=== PATIENT | female | born 1975 | race Caucasian/White ===

== ENCOUNTER 2023-01-09 12:08 | Outpatient (REF) | payer BC, SELFPAY ==
[2023-01-09 15:01] LABS: Influenza A PCR NEGATIVE (Negative); Influenza B PCR NEGATIVE (Negative); Resp Syncy Virus RNA Qual PCR NEGATIVE (Negative); SARS COV2 PCR INHOUSE NEGATIVE (Negative)
== END 2023-01-09 12:09 | disposition home or self-care (01) ==
LOC: HO.LAB 12:08
PROVIDERS: Visit Provider Physician Assistant
DX: Z20.822 Contact with and (suspected) exposure to COVID-19 (principal); R09.89 Other specified symptoms and signs involving the circulatory and respiratory systems
CPT/HCPCS: 0241U

== ENCOUNTER 2023-09-27 15:25 | Outpatient (AMB) | payer BC, SELFPAY ==
[2023-09-27 15:27] VITALS: BP 120/86; PULSE 78; O2SAT 97; BMI 25.1
--- NOTE | 2023-09-27 15:27 | MHC.PC.OV ---
Vital Signs 09/27/23 15:27 Height 5 ft 4 in Weight 146 lb BMI 25.1 BP 120/86 Blood Pressure Location Rt brachial Position Sitting Pulse 78 Pulse Source Pulse Oximeter Pulse Oximetry (%) 97 Oxygen Delivery Method Room Air Intake Visit Reasons: Annual Physical Allergies No Known Allergies Allergy (Verified 09/27/23 15:27) Medication List - Last Reconciled 09/27/23 by Robert Barajas MD propranolol 20 mg PO DAILY 90 days Tobacco use date assessed: 09/27/23 Dental Screening Dental Screen Date: 09/27/23 Did you have a dental visit in the last 12 months?: Yes Did you have a dental problem in the last 6 months where you did not have access to dental care?: No Was dental information given to patient?: Patient has dentist HPI Annual Physical HPI Details Patient is a 48-year-old female came in today for her physical exam Her migraine headaches are worse these days patient feels that she is going through menopause She is asking me if I can check her menopausal hormones which I have added to her labs Patient is seeing OBGYN at [facility], mammograms and breast exams are through them She is off control since last October We will set up a telemedicine visit in 2 weeks to go over the labs and then see if we can change propranolol to amitriptyline He is complaining of severe tiredness and fatigue, her tested positive for Lyme patient is requesting if she can be checked as well [facility] Social History Housing: House Alcohol intake: current Alcohol intake frequency: a few times a month Patient Tobacco Use Status: Never used Tobacco e-Cigarette/Vaping Use: Never Used service: No Current occupational status: employed Cognitive needs: No Hearing needs: No Vision needs: No Questionnaire PHQ-9 Over the last 2 weeks, how often have you been bothered by any of the following problems? 1. Little interest or pleasure in doing things: several days 2. Feeling down, depressed, or hopeless: not at all 3. Trouble falling or staying asleep, or sleeping too much: not at all 4. Feeling tired or having little energy: more than half the days 5. Poor appetite or overeating: more than half the days 6. Feeling bad about yourself - or that you are a failure or have let yourself or your family down: not at all 7. Trouble concentrating on things, such as reading the newspaper or watching television: not at all 8. Moving or speaking so slowly that other people could have noticed. Or the opposite - being so fidgety or restless that you have been moving around a lot more than usual: not at all 9. Thoughts that you would be better off or of hurting yourself in some way: not at all Total score: 5 Depression Screening Interpretation: Negative Depression Screening Done: Yes 35734 - PHQ-9 Billing: Yes Source: Developed by Drs. Daljit Ahuja, Jose Moreno and colleagues, with an educational sunny from [employer]. Thrive Questionnaire Date Thrive assessed: 09/20/22 AUDIT C Alcohol Use Questionnaire (AUDIT-C) 1. How often do you have a drink containing alcohol?: Monthly or less 2. How many drinks containing alcohol do you have on a typical day when you are drinking?: 1 or 2 3. How often do you have six or more drinks on one occasion?: Never Total Score: 1 Score Reviewed/Action Taken: Yes PATRICIA-7 AMB Questionnaire PATRICIA-7 Date PATRICIA - 7 assessed: 09/20/22 Source: Developed by Drs. Daljit Ahuja, Angelina Ybarra, Jose Man and colleagues, with an educational sunny from [employer]. Review of Systems Const Denies chills, Denies fever(s) and Denies headache(s) Eyes Denies blurry vision ENT Denies headache(s), Denies nasal discharge, Denies nasal obstruction, Denies odynophagia and Denies sinus pain Card Denies chest pain at rest and Denies chest pain with activity Resp Denies cough and Denies hemoptysis GI Denies diarrhea, Denies odynophagia, Denies vomiting and Denies hematemesis Reports as per HPI Musc Denies abnormal gait Skin/Breast Reports as per HPI Neuro Denies Neuro-related abnormal movements, Denies Abnormal speech present, Denies abnormal gait, Denies headache(s) and Denies Sensory deficit (Neuro) Psych Denies paranoia Endo Reports as per HPI Kelvin/Lymph Reports as per HPI Aller/Immun Reports as per HPI Physical exam (Primary Care) Vital Signs: Last Vital Signs Pulse 78 09/27/23 15:27 BP 120/86 09/27/23 15:27 Pulse Ox 97 09/27/23 15:27 Oxygen Delivery Method Room Air 09/27/23 15:27 BMI result Body Mass Index 25.1 Tobacco/Smoking Status: Tobacco use Status Tobacco use date assessed 09/27/23 09/27/23 15:29 Patient Tobacco Use Status Never used Tobacco 09/27/23 15:29 e-Cigarette/Vaping Use Never Used 09/27/23 15:29 Depression Screening Interpretation: Negative Thrive Assessment: Date of Thrive Assessment Date Thrive assessed 09/20/22 09/27/23 15:29 Const General: cooperative, comfortable and no acute distress Orientation/consciousness: patient oriented x3 HENMT Head: Yes normocephalic and Yes atraumatic Eyes General: appearance normal, both eyes and all related structures Pupils: Equal, round and reactive pupils present EOM: EOMs intact bilaterally Neck Neck: Yes supple and No lymphadenopathy Thyroid: Thyroid normal Lymphatic: no lymphadenopathy noted Resp Effort & Inspection: normal respiratory effort and able to speak in complete sentences Auscultation: clear to auscultation bilaterally Cardio Heart sounds: S1 normal heart sound present and S2 normal heart sound present GI Palpation (GI): Soft to palpation and nontender Auscultation: normal bowel sounds General: Yes no CVA tenderness Back/Spine/Pelvis Back: no CVA tenderness Skin General skin exam: elasticity normal and turgor normal Neuro General: patient oriented x3 and gait normal Cranial nerves: Yes Equal, round and reactive pupils present Speech: No Abnormal speech present Sensory Exam: No Sensory deficit (Neuro) Coordination: tandem gait normal and Romberg test negative Extrem General: Yes normal exam except as noted and No edema Assessment and Plan Assessment & Plan (1) Encounter for general adult medical examination with abnormal findings: Code(s): Z00.01 - Encounter for general adult medical examination with abnormal findings (2) Migraine headache: Code(s): G43.909 - Migraine, unspecified, not intractable, without status migrainosus Qualifiers: Migraine type: other Status migrainosus presence: without status migrainosus Intractability: intractable Qualified Code(s): G43.819 - Other migraine, intractable, without status migrainosus (3) Fatigue: Code(s): R53.83 - Other fatigue Qualifiers: Fatigue type: other Qualified Code(s): R53.83 - Other fatigue (4) Hot flashes: Code(s): R23.2 - [place] Plan Patient is a 48-year-old female came in today for her physical exam Her migraine headaches are worse these days patient feels that she is going through menopause She is asking me if I can check her menopausal hormones which I have added to her labs Patient is seeing OBGYN at [facility], mammograms and breast exams are through them She is off control since last October We will set up a telemedicine visit in 2 weeks to go over the labs and then see if we can change propranolol to amitriptyline He is complaining of severe tiredness and fatigue, her tested positive for Lyme patient is requesting if she can be checked as well Orders: Orders Complete Blood Count Auto Diff Today G43.909 - Migraine, unspecified, not intractable, without status migrainosus, Z00.01 - Encounter for general adult medical examination with abnormal findings Comprehensive [place]. Panel Fast Today G43.909 - Migraine, unspecified, not intractable, without status migrainosus, Z00.01 - Encounter for general adult medical examination with abnormal findings TSH reflex Free T4 Today G43.909 - Migraine, unspecified, not intractable, without status migrainosus, Z00.01 - Encounter for general adult medical examination with abnormal findings Lutenizing Hormone Today R23.2 - [place], R53.83 - Other fatigue Lyme IgG/IgM w/reflex to WB Today R23.2 - [place], R53.83 - Other fatigue Lipid Panel Today G43.909 - Migraine, unspecified, not intractable, without status migrainosus, Z00.01 - Encounter for general adult medical examination with abnormal findings Follicle Stimulating Hormone Today R23.2 - [place], R53.83 - Other fatigue Coding Level of Care Code Est Pt Prev Care 40-64y(33103) Diagnoses Encounter for general adult medical examination with abnormal findings Z00.01 Other migraine without status migrainosus, intractable G43.819 Migraine type: other Status migrainosus presence: without status migrainosus Intractability: intractable Other fatigue R53.83 Fatigue type: other Hot flashes R23.2
== END 2023-09-27 15:44 | disposition home or self-care (01) ==
PROVIDERS: Visit Provider Internal Medicine
DX: Z00.01 Encounter for general adult medical examination with abnormal findings (principal); G43.819 Other migraine, intractable, without status migrainosus; R53.83 Other fatigue; R23.2 Flushing
CPT/HCPCS: 99396

== ENCOUNTER 2023-09-30 08:49 | Outpatient (REF) | payer BC, SELFPAY ==
[2023-09-30 11:06] LABS: MANUAL DIFF FLAG NO
[2023-09-30 11:12] LABS: Basophils Absolute Auto 0.1 X10*3/uL (0.0-0.2); Basophils Percent Auto 0.7 % (0-2); Eosinophils Absolute Auto 0.3 X10*3/uL (0.0-0.4); Eosinophils Percent Auto 3.1 % (0-4); Hematocrit 37.4 % (37.0-47.0); Hemoglobin 12.5 g/dl (12.0-16.0); Imm Gran Abs Auto 0.02 X10*3/uL (0.00-0.03); Imm Gran Pct Auto 0.2 % (0.0-0.4); Lymphocytes Absolute Auto 1.8 X10*3/uL (1.2-4.9); Lymphocytes Percent Auto 21.5 % (20-40); Mean Corpuscular HGB Conc 33.4 g/dl (31.0-35.0); Mean Corpuscular Hemoglobin 30.8 pg (27.0-33.0); Mean Corpuscular Volume 92.1 fL (80.0-98.0); Mean Platelet Volume 8.6 fL (9.4-12.3); Monocytes Absolute Auto 0.5 X10*3/uL (0.1-1.2); Monocytes Percent Auto 6.6 % (2-11); Neutrophils Absolute Auto 5.5 x10*3/uL (2.0-8.3); Neutrophils Percent Auto 67.9 % (45-73); Platelet Count 260 X10*3/uL (160-400); Red Blood Count 4.06 X10*6/uL (4.20-5.50); Red Cell Distribution Width 12.7 % (11.0-16.0); White Blood Count 8.2 X10*3/uL (4.8-10.8)
[2023-09-30 11:43] LABS: Alanine Aminotransferase 13 U/L (0-31); Albumin Level 4.1 g/dL (3.5-5.0); Alkaline Phosphatase 49 U/L (39-117); Anion Gap 12 (12-20); Aspartate Amino Transferase 15 U/L (5-31); Bilirubin Total 0.5 mg/dL (0.0-1.0); Blood Urea Nitrogen 15 mg/dL (9-16); Calcium 9.4 mg/dL (8.4-10.2); Carbon Dioxide 27 mmol/L (22-29); Chloride 106 mmol/L (96-108); Cholesterol 191 mg/dL (<200); Estimated Glomerular Filt Rate > 60; Glucose Fasting 91 mg/dL (60-99); HDL Cholesterol 68 mg/dL (>40); LDL Cholesterol Calculated 107 mg/dL (<100); Potassium 3.7 mmol/L (3.3-5.1); Sodium 141 mmol/L (135-145); Triglycerides 80 mg/dL (<150)
[2023-09-30 11:44] LABS: TSH reflex Free T4 1.17 uIU/mL (0.32-4.0)
[2023-10-01 16:03] LABS: Follicle Stimulating Hormone 6.3 mIU/mL; Lutenizing Hormone 8.9 mIU/mL
[2023-10-02 19:08] LABS: Lyme Abs Screen <0.90 index
== END 2023-09-30 08:50 | disposition home or self-care (01) ==
LOC: HO.HMGCLDS 08:49
PROVIDERS: PCP Internal Medicine; Visit Provider Internal Medicine
DX: Z00.01 Encounter for general adult medical examination with abnormal findings (principal); G43.909 Migraine, unspecified, not intractable, without status migrainosus; R53.83 Other fatigue; R23.2 Flushing
CPT/HCPCS: 36415; 80053; 80061; 83001; 83002; 84443; 85025; 86617; 86618

== ENCOUNTER 2023-10-19 08:39 | Outpatient (AMB) | payer BC, SELFPAY ==
--- NOTE | 2023-10-19 08:39 | A.OFFPC_ITS ---
Intake Visit Reasons: 2 week follow up Allergies No Known Allergies Allergy (Verified 10/19/23 08:39) Medication List - Last Reconciled 10/19/23 by Robert Barajas MD propranolol 20 mg PO DAILY 90 days Tobacco use date assessed: 09/27/23 HPI 2 week follow up HPI Details Patient is 48-year-old female who suffers from migraine headache She was seen few days ago when she verbalized that her headaches are getting worse And she is feeling tired I wanted to check for Lyme as her came back positive, her test is negative Her menopausal hormones are also within normal limit Thyroid test came back normal Kidney function liver functions are intact lipids are reasonably controlled. Patient tells me that her migraines are stable now and she would like to continue with propranolol. [facility] Social History Housing: House Alcohol intake: current Alcohol intake frequency: a few times a month Patient Tobacco Use Status: Never used Tobacco e-Cigarette/Vaping Use: Never Used service: No Current occupational status: employed Cognitive needs: No Hearing needs: No Vision needs: No Questionnaire Thrive Questionnaire Date Thrive assessed: 09/20/22 PATRICIA-7 AMB Questionnaire PATRICIA-7 Date PATRICIA - 7 assessed: 09/20/22 Source: Developed by Drs. Daljit Ahuja, Angelina Ybarra, Jose Man and colleagues, with an educational sunny from [employer]. Review of Systems Const Denies chills and Denies fever(s) ENT Denies epistaxis and Denies nasal discharge Card Denies chest pain Resp Denies chest congestion, Denies cough and Denies hemoptysis GI Denies diarrhea and Denies nausea Skin/Breast Denies rash Neuro Reports no additional complaints Psych Reports no additional complaints Endo Reports no additional complaints Physical exam (Primary Care) Tobacco/Smoking Status: Tobacco use Status Tobacco use date assessed 09/27/23 10/19/23 08:41 Patient Tobacco Use Status Never used Tobacco 10/19/23 08:41 e-Cigarette/Vaping Use Never Used 10/19/23 08:41 Thrive Assessment: Date of Thrive Assessment Date Thrive assessed 09/20/22 10/19/23 08:41 Telehealth Telehealth Location of provider rendering services: practice address Location of patient: address on file Patient Identification confirmed using: Name, : Yes Telehealth method: video Patient verbally consented to treatment: Yes Patient verbally consented to billing insurance company: Yes Patient informed of any privacy concerns related to visit: Yes Minutes spent on Phone/Video with Pt.: 13 Assessment and Plan Assessment & Plan (1) Migraine headache: Code(s): G43.909 - Migraine, unspecified, not intractable, without status migrainosus Qualifiers: Intractability: intractable Migraine type: other Status migrainosus presence: without status migrainosus Qualified Code(s): G43.819 - Other migraine, intractable, without status migrainosus Plan Patient is 48-year-old female who suffers from migraine headache She was seen few days ago when she verbalized that her headaches are getting worse And she is feeling tired I wanted to check for Lyme as her came back positive, her test is negative Her menopausal hormones are also within normal limit Thyroid test came back normal Kidney function liver functions are intact lipids are reasonably controlled. Patient tells me that her migraines are stable now and she would like to continue with propranolol. Coding Level of Care Code Tele Est Pt Level 3 (98963) Diagnoses Other migraine without status migrainosus, intractable G43.819 Intractability: intractable Migraine type: other Status migrainosus presence: without status migrainosus
--- NOTE | 2023-10-19 08:39 | A.OFFPC_ITS ---
Intake Visit Reasons: 2 week follow up Allergies No Known Allergies Allergy (Verified 10/19/23 08:39) Tobacco use date assessed: 10/19/23 [facility] Social History Housing: House Alcohol intake: current Alcohol intake frequency: a few times a month Patient Tobacco Use Status: Never used Tobacco e-Cigarette/Vaping Use: Never Used service: No Current occupational status: employed Cognitive needs: No Hearing needs: No Vision needs: No Questionnaire Thrive Questionnaire Date Thrive assessed: 09/20/22 PATRICIA-7 AMB Questionnaire PATRICIA-7 Date PATRICIA - 7 assessed: 09/20/22 Source: Developed by Drs. Daljit Ahuja, Angelina Ybarra, Jose Man and colleagues, with an educational sunny from [employer]. Physical exam (Primary Care) Tobacco/Smoking Status: Tobacco use Status Tobacco use date assessed 09/27/23 09/27/23 15:29 Patient Tobacco Use Status Never used Tobacco 09/27/23 15:29 e-Cigarette/Vaping Use Never Used 09/27/23 15:29 Thrive Assessment: Date of Thrive Assessment Date Thrive assessed 09/20/22 09/27/23 15:29 Coding
== END 2023-10-19 15:13 | disposition home or self-care (01) ==
LOC: HO.HMGC 08:39
PROVIDERS: PCP Internal Medicine; Visit Provider Internal Medicine
DX: G43.819 Other migraine, intractable, without status migrainosus (principal)
CPT/HCPCS: 99213

== ENCOUNTER 2024-11-05 12:22 | Outpatient (REF) | payer BC, SELFPAY ==
--- OUTSIDE RECORDS SUMMARY | 2024-11-05 15:19 | XMS_ITS | Clinical Summary ---
Author Organization [facility] ity Address [address] [place] [phone] Care Team Providers Care Visiting Housekeeper Name Role Phone Robert Barajas MD Primary Care Provider [phone] Surgical History Surgery Date Site/Laterality Comments OTHER [...] RESULTING AGENCY - 09/02/2022 2:50 PM EST [id number] THINPREP PAP, IMAGED: NEGATIVE FOR SQUAMOUS INTRAEPITHELIAL [...] AM EDT Narrative 04/03/2022 1:31 PM EDT [facility] Diagnostic Imaging Department [address] [place] [address] Patient: ??DORITA INGRAM ?/Age/Sex: 1975 - 46 - F Unit#: ??[id number] ? Location/Status: ??SPDIMAM/REG CLI ? Mnemonic/Ordering Site: ??DIGSC/SPMAM Ordering Physician: ??REMIGIO MAHER MD [facility] Screening Digital - 04/02/22 - 820 EXAM: [facility] Screening Digital EXAM DATE AND TIME: 04/02/2022 8:22 AM HISTORY: ??Annual screening mammography. COMPARISON: ??06/25/2020 through 03/20/2017 TECHNIQUE: CC and MLO views of both breasts were obtained using full field digital mammography. Bilateral digital breast tomosynthesis was performed in the MLO projection. 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 TISSUE DENSITY: d. The breasts [...] Routine screening mammogram BILATERAL in 1 year. 13691, 12078 3341F, 7025F Dictating Physician: ??ALEJANDRA SOLORZANO MD Electronically Signed by: ??ALEJANDRA SOLORZANO MD Dic Date/Time: ??04/03/22 1326 Sign date/Time: ??04/03/22 1331 Procedure Note Eliza Solorzano MD - 07/27/2022 [facility] Diagnostic Imaging Department [address] [place] [address] Patient: DORITA INGRAM D.O.B./Age/Sex: 1975 - 46 - F Unit#: [id number] Location/Status: SPDIMAM/REG CLI Mnemonic/Ordering Site: [facility] Ordering Physician: REMIGIO MAHER MD [facility] Screening Digital - 04/02/22 - 820 EXAM: [facility] Screening Digital EXAM DATE AND TIME: 04/02/2022 8:22 AM HISTORY: Annual screening mammography. COMPARISON: 06/25/2020 through 03/20/2017 TECHNIQUE: CC and MLO views of both breasts were obtained using fullfield digital mammography. Bilateral digital breast tomosynthesis was performedin the MLO projection. Computer aided detection with the app[employer] employed. TISSUE DENSITY: d. The breasts are [...] Routine screening mammogram BILATERAL in 1 year. 88086, 56038 3341F, 7025F Dictating Physician: ALEJANDRA SOLORZANO MD Electronically Signed by: ALEJANDRA SOLORZANO MD Dic Date/Time: 04/03/22 1326 Sign date/Time: 04/03/22 1331 Remigio Maher MD IMG BI PROCEDURES Final Result from Last 3 Months or Most Recently Relevant to Health Maintenance Advance Directives Documents on File Type Date Recorded Patient Loan Service Officer Expl anation Health Care Decision (hx) 01/07/2022 AD HIGUERA DIRECTIVE Health Care Decision (hx) 01/07/2022 AD HIGUERA DIRECTIVE Health Care Decision (hx) 01/07/2022 AD HIGUERA DIRECTIVE Care Teams Visiting Housekeeper Relationship Specialty Start Date End Date Robert Barajas MD [address] [place] [address] PCP - General Internal Medicine 12/23/21
[2024-11-05 16:13] LABS: MANUAL DIFF FLAG NO
[2024-11-05 16:37] LABS: Basophils Absolute Auto 0.1 X10*3/uL (0.0-0.2); Basophils Percent Auto 0.6 % (0-2); Eosinophils Absolute Auto 0.3 X10*3/uL (0.0-0.4); Eosinophils Percent Auto 3.6 % (0-4); Hemoglobin 12.1 g/dl (12.0-16.0); Imm Gran Abs Auto 0.02 X10*3/uL (0.00-0.03); Imm Gran Pct Auto 0.2 % (0.0-0.4); Lymphocytes Absolute Auto 1.7 X10*3/uL (1.2-4.9); Lymphocytes Percent Auto 19.5 % (20-40); Mean Corpuscular HGB Conc 33.6 g/dl (31.0-35.0); Mean Corpuscular Hemoglobin 30.9 pg (27.0-33.0); Mean Corpuscular Volume 92.1 fL (80.0-98.0); Mean Platelet Volume 8.7 fL (9.4-12.3); Monocytes Absolute Auto 0.7 X10*3/uL (0.1-1.2); Monocytes Percent Auto 7.9 % (2-11); Neutrophils Absolute Auto 5.9 x10*3/uL (2.0-8.3); Neutrophils Percent Auto 68.2 % (45-73); Platelet Count 241 X10*3/uL (160-400); Red Blood Count 3.91 X10*6/uL (4.20-5.50); Red Cell Distribution Width 12.4 % (11.0-16.0); White Blood Count 8.6 X10*3/uL (4.8-10.8)
[2024-11-05 18:09] LABS: Alanine Aminotransferase 22 U/L (0-31); Albumin Level 4.3 g/dL (3.5-5.0); Alkaline Phosphatase 53 U/L (39-117); Anion Gap 8 (12-20); Aspartate Amino Transferase 21 U/L (5-31); Bilirubin Total 0.5 mg/dL (0.0-1.0); Blood Urea Nitrogen 15 mg/dL (9-16); Calcium 9.5 mg/dL (8.4-10.2); Carbon Dioxide 27 mmol/L (22-29); Chloride 107 mmol/L (96-108); Estimated Glomerular Filt Rate > 60; Glucose Random 81 mg/dL (60-115); Potassium 4.4 mmol/L (3.3-5.1); Sodium 138 mmol/L (135-145); TSH reflex Free T4 0.98 uIU/mL (0.32-4.0)
[2024-11-06 16:05] LABS: LDL Cholesterol Direct 106 mg/dL (<100)
== END 2024-11-05 12:23 | disposition home or self-care (01) ==
LOC: HO.HMGCLDS 12:22
PROVIDERS: PCP Internal Medicine; Visit Provider Internal Medicine
DX: Z00.01 Encounter for general adult medical examination with abnormal findings (principal); R00.2 Palpitations; G43.819 Other migraine, intractable, without status migrainosus; E66.3 Overweight; Z68.26 Body mass index [BMI] 26.0-26.9, adult; Z82.49 Family history of ischemic heart disease and other diseases of the circulatory system; Z82.3 Family history of stroke; Z71.3 Dietary counseling and surveillance
CPT/HCPCS: 36415; 80053; 83721; 84443; 85025; 96127

== ENCOUNTER 2024-11-05 12:22 | Outpatient (AMB) | payer BC, SELFPAY ==
[2024-11-05 12:29] VITALS: BP 128/76; PULSE 66; O2SAT 98; BMI 26.0
--- NOTE | 2024-11-05 12:29 | A.OFFPC_ITS ---
Vital Signs 11/05/24 12:29 Height 5 ft 4 in Weight 151 lb 4 oz BMI 26.0 BP 128/76 Blood Pressure Location Rt brachial Position Sitting Pulse 66 Pulse Source Pulse Oximeter Pulse Oximetry (%) 98 Oxygen Delivery Method Room Air Intake Visit Reasons: Annual Pe Allergies No Known Allergies Allergy (Verified 11/05/24 12:34) Medication List - Last Reconciled 11/05/24 by Robert Barajas MD propranolol 20 mg PO DAILY 90 days Tobacco use date assessed: 11/05/24 Dental Screening Dental Screen Date: 11/05/24 Did you have a dental visit in the last 12 months?: Yes Did you have a dental problem in the last 6 months where you did not have access to dental care?: No Was dental information given to patient?: Patient has dentist HPI Annual Pe HPI Details Patient is a 49-year-old female came in for physical examination Migraine headaches are no longer responding to propranolol 20 mg alone Also having difficulty sleeping at night due to stress at work 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 Rollins Follow-up in 3 weeks for medication follow-up and Holter and echocardiogram/labs follow-up [facility] Social History Housing: House Alcohol intake: current Alcohol intake frequency: a few times a month Patient Tobacco Use Status: Never used Tobacco e-Cigarette/Vaping Use: Never Used service: No Current occupational status: employed Cognitive needs: No Hearing needs: No Vision needs: No Questionnaire PHQ-9 Over the last 2 weeks, how often have you been bothered by any of the following problems? 1. Little interest or pleasure in doing things: not at all 2. Feeling down, depressed, or hopeless: not at all 3. Trouble falling or staying asleep, or sleeping too much: several days 4. Feeling tired or having little energy: several days 5. Poor appetite or overeating: several days 6. Feeling bad about yourself - or that you are a failure or have let yourself or your family down: not at all 7. Trouble concentrating on things, such as reading the newspaper or watching television: not at all 8. Moving or speaking so slowly that other people could have noticed. Or the opposite - being so fidgety or restless that you have been moving around a lot more than usual: not at all 9. Thoughts that you would be better off or of hurting yourself in some way: not at all Total score: 3 Depression Screening Interpretation: Negative Depression Screening Done: Yes 26077 - PHQ-9 Billing: Yes Source: Developed by Drs. Daljit Ahuja, Angelina Ybarra, Jose Man and colleagues, with an educational sunny from [employer]. Thrive Questionnaire Date Thrive assessed: 11/05/24 I am a: Patient What is your living situation today?: I have a steady place to live Within the past 12 months, did the food you bought not last and you didn't have the money to get more?: I choose not to answer this question Within the past 12 months, did you worry whether your food would run out before you got money to buy more?: I choose not to answer this question Do you have trouble paying for medicines?: I choose not to answer this question Do you have trouble getting transportation to medical appointments?: I choose not to answer this question Do you have trouble paying your heating and electricity bill?: I choose not to answer this question Do you have trouble taking care of your child, family member or friend?: I choose not to answer this question Do you have trouble with day-to-day activities such as bathing, preparing meals, shopping, managing finances, etc.?: I choose not to answer this question Are you currently unemployed and looking for a job?: I choose not to answer this question Are you interested in more education?: I choose not to answer this question Please select the resources that you would like help with: None Currently or been in a relationship where the following occur: No concerns reported and I choose not to answer THRIVE Score: 0 AUDIT C Alcohol Use Questionnaire (AUDIT-C) 1. How often do you have a drink containing alcohol?: 2-3 times a week 2. How many drinks containing alcohol do you have on a typical day when you are drinking?: 1 or 2 3. How often do you have six or more drinks on one occasion?: Never Total Score: 3 Score Reviewed/Action Taken: Yes PATRICIA-7 AMB Questionnaire PATRICIA-7 Date PATRICIA - 7 assessed: 11/05/24 Feeling nervous, anxious, or on edge: 1 = Several days Not being able to stop or control worryin = Several days Worrying too much about different things: 1 = Several days Trouble relaxin = Several days Being so restless that it is hard to sit still: 0 = Not at all Becoming easily annoyed or irritable: 1 = Several days Feeling afraid as if something awful might happen: 0 = Not at all Total PATRICIA-7 score (0-4 normal; 5-9 mild; 10-14 moderate; 15-21 severe): 5 Source: Developed by Drs. Daljit Ahuja, Angelina Ybarra, Jose Man and colleagues, with an educational sunny from [employer]. PATRICIA-7 Assessment Billing PATRICIA-7 Assessment Tool: PATRICIA-7 Assessment 40858 Review of Systems Const Denies chills and Denies fever(s) Eyes Denies blurry vision ENT Denies nasal discharge, Denies nasal obstruction, Denies odynophagia and Denies sinus pain Card Denies chest pain at rest and Denies chest pain with activity Resp Denies cough and Denies hemoptysis GI Denies diarrhea, Denies odynophagia, Denies vomiting and Denies hematemesis Reports as per HPI Musc Denies abnormal gait Skin/Breast Reports as per HPI Neuro Denies Neuro-related abnormal movements, Denies Abnormal speech present, Denies abnormal gait and Denies Sensory deficit (Neuro) Psych Denies mood swings and Denies paranoia Endo Reports as per HPI Kelvin/Lymph Reports as per HPI Aller/Immun Reports as per HPI Physical exam (Primary Care) Vital Signs: Last Vital Signs Pulse 66 11/05/24 12:29 BP 128/76 11/05/24 12:29 Pulse Ox 98 11/05/24 12:29 Oxygen Delivery Method Room Air 11/05/24 12:29 BMI result Body Mass Index 26.0 Tobacco/Smoking Status: Tobacco use Status Tobacco use date assessed 11/05/24 11/05/24 12:34 Patient Tobacco Use Status Never used Tobacco 11/05/24 12:29 e-Cigarette/Vaping Use Never Used 11/05/24 12:29 PHQ-9: PHQ-9 Score PHQ-9: Total score 3 11/05/24 12:59 Depression Screening Interpretation: Negative Thrive Assessment: Date of Thrive Assessment Date Thrive assessed 11/05/24 11/05/24 12:34 Currently or been in a relationship where the following occur: No concerns reported and I choose not to answer Const General: cooperative, comfortable and no acute distress Orientation/consciousness: patient oriented x3 HENMT Head: Yes normocephalic and Yes atraumatic Eyes General: appearance normal, both eyes and all related structures Pupils: Equal, round and reactive pupils present EOM: EOMs intact bilaterally Neck Neck: Yes supple and No lymphadenopathy Thyroid: Thyroid normal Lymphatic: no lymphadenopathy noted Resp Effort & Inspection: normal respiratory effort and able to speak in complete sentences Auscultation: clear to auscultation bilaterally Cardio Heart sounds: S1 normal heart sound present and S2 normal heart sound present GI Palpation (GI): Soft to palpation and nontender Auscultation: normal bowel sounds General: Yes no CVA tenderness Back/Spine/Pelvis Back: no CVA tenderness Skin General skin exam: elasticity normal and turgor normal Neuro General: patient oriented x3 and gait normal Cranial nerves: Yes Equal, round and reactive pupils present Speech: No Abnormal speech present Sensory Exam: No Sensory deficit (Neuro) Coordination: tandem gait normal and Romberg test negative Extrem General: Yes normal exam except as noted and No edema Coding Level of Care Code Est Pt Level 4 (12545) Est Pt Prev Care 40-64y(69554) Diagnoses Encounter for general adult medical examination with abnormal findings Z00.01 Colon cancer screening Z12.11 Palpitation R00.2 Other migraine without status migrainosus, intractable G43.819 Intractability: intractable Migraine type: other Status migrainosus presence: without status migrainosus Family history of atrial fibrillation Z82.49 Over weight E66.3 Family history of stroke Z82.3 Family history of early CAD Z82.49 Additional Codes PATRICIA-7 Assessment Billing - PATRICIA-7 Assessment Tool: PATRICIA-7 Assessment 65235 ([id number]) PHQ-9 - 62574 - PHQ-9 Billing: Yes ([id number]) Assessment & Plan Assessment & Plan (1) Encounter for general adult medical examination with abnormal findings: Code(s): Z00.01 - Encounter for general adult medical examination with abnormal findings Category: Medical (2) Colon cancer screening: Code(s): Z12.11 - Encounter for screening for malignant neoplasm of colon Category: Medical (3) Palpitation: Code(s): R00.2 - Palpitations Category: Medical (4) Migraine headache: Code(s): G43.909 - Migraine, unspecified, not intractable, without status migrainosus Category: Medical Qualifiers: Intractability: intractable Migraine type: other Status migrainosus presence: without status migrainosus Qualified Code(s): G43.819 - Other migraine, intractable, without status migrainosus (5) Family history of atrial fibrillation: Code(s): Z82.49 - Family history of ischemic heart disease and other diseases of the ci rculatory system Category: Medical (6) Over weight: Code(s): E66.3 - Overweight Category: Medical (7) Family history of stroke: Code(s): Z82.3 - Family history of stroke Category: Medical (8) Family history of early CAD: Code(s): Z82.49 - Family history of ischemic heart disease and other diseases of the circulatory system Category: Medical Plan Patient is a 49-year-old female came in for physical examination Migraine headaches are no longer responding to propranolol 20 mg alone Also having difficulty sleeping at night due to stress at work 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 Rollins Follow-up in 3 weeks for medication follow-up and Holter and echocardiogram/labs follow-up Orders: Orders ECG 3 day holter monitor Today R00.2 - Palpitations Comprehensive Met. Panel Today E66.3 - Overweight, G43.819 - Other migraine, intractable, without status migrainosus, R00.2 - Palpitations, Z00.01 - Encounter for general adult medical examination with abnormal findings, Z82.49 - Family history of ischemic heart disease and other diseases of the circulatory system TSH reflex Free T4 Today E66.3 - Overweight, G43.819 - Other migraine, intractable, without status migrainosus, R00.2 - Palpitations, Z00.01 - Encounter for general adult medical examination with abnormal findings, Z82.49 - Family history of ischemic heart disease and other diseases of the circulatory system CA echo transthoracic complete Today R00.2 - Palpitations, Z82.3 - Family history of stroke, Z82.49 - Family history of ischemic heart disease and other diseases of the circulatory system Complete Blood Count Auto Diff Today E66.3 - Overweight, G43.819 - Other migraine, intractable, without status migrainosus, R00.2 - Palpitations, Z00.01 - Encounter for general adult medical examination with abnormal findings, Z82.49 - Family history of ischemic heart disease and other diseases of the circulatory system LDL Cholesterol Direct Today E66.3 - Overweight, G43.819 - Other migraine, intractable, without status migrainosus, R00.2 - Palpitations, Z00.01 - Encounter for general adult medical examination with abnormal findings, Z82.49 - Family history of ischemic heart disease and other diseases of the circulatory system Referrals Gastroenterology Referral Z12.11 - Encounter for screening for malignant neoplasm of colon Medications: New amitriptyline 25 mg PO BEDTIME 30 days 30 tabs 0RF
--- OUTSIDE RECORDS SUMMARY | 2024-11-05 14:36 | XMS_ITS | Encounter Summary ---
Author Organization Formerly [facility] Address [address] [place] [address] Care Team Providers Care Telesales Specialist Name Role Phone Community, Pcp Unavailable Unavailable Robert Barajas MD Primary Care Provider Unavailabl e Encounter Details Date Type Department Care Team Description 01/07/2022 Hospital Medical Records [address] [place] [address] Lizzeth Lira MD [address] [place] [address] for Breast Health [place] [address] Social History Tobacco Use Types Packs/Day Years Used Date Smoking Tobacco: Never Smokeless Tobacco: Never Sex Assigned at Date Recorded Not on file documented as of this encounter Plan of Treatment Not on file documented as of this encounter Visit Diagnoses Not on filedocumented in this encounter Care Teams Telesales Specialist Relationship Specialty Start Date End Date Robert Barajas MD PCP - General Internal Medicine 12/23/21 Community, Pcp 11/19/07 documented as of this encounter
--- OUTSIDE RECORDS SUMMARY | 2024-11-05 14:36 | XMS_ITS | Encounter Summary ---
Author Organization [facility] [employer] [facility] Address [address] [place] [address] Care Team Providers Care Technical Healthcare Consultant Name Role Phone Community, Pcp Unavailable Unavailable Robert Barajas MD Primary Care Provider Unavailabl e Encounter Details Date Type Department Care Team Description 12/27/2021 Release of Information Medical Records [address] [place] [address] Abstract, Provider Social History Tobacco Use Types Packs/Day Years Used Date Smoking Tobacco: Never Smokeless Tobacco: Never Sex Assigned at Date Recorded Not on file documented as of this encounter Plan of Treatment Not on file documented as of this encounter Visit Diagnoses Not on filedocumented in this encounter Care Teams Technical Healthcare Consultant Relationship Specialty Start Date End Date Robert Barajas MD PCP - General Internal Medicine 12/23/21 Community, Pcp 11/19/07 documented as of this encounter
--- OUTSIDE RECORDS SUMMARY | 2024-11-05 14:36 | XMS_ITS | Clinical Summary ---
Author Organization [facility] [employer] [facility] Address [id number] [place] [id number] Care Team Providers Care Engine Monitor Name Role Phone Robert Barajas MD Primary Care Provider [phone] Surgical History Surgery Date Site/Laterality Comments OTHER SURGICAL HISTORY PROCEDURE: DENIES PREVIOUS SURGERY Family History Medical History Relation Name Comments Stroke Father Relation Name Status Comments Father Social History Tobacco Use Types Packs/Day Years Used Date Smoking Tobacco: Never Smokeless Tobacco: Never Comments Unknown Sex and Gender Information Value Date Recorded Sex Assigned at Not on file Legal Sex Female 9:49 PM EST Gender Identity Not on file Sexual Orientation Not on file Obstetrics History Last Filed Vital Signs Vital Sign Reading Time Taken Comments Blood Pressure 131/82 08/23/2022 11:44 AM EST Pulse 61 08/23/2022 11:44 AM EST Temperature - - Respiratory Rate - - Oxygen Saturation - - Inhaled Oxygen Concentration - - Weight 67.6 kg (149 lb) 08/23/2022 11:44 AM EST Height - - Body Mass Index - - Plan of Treatment Health Maintenance Due Date Last Done Comments DTaP,Tdap,and Td Vaccines (1 - Tdap) 1993 Hepatitis B Vaccines (1 of 3 - 19+ 3-dose series) 1993 Colorectal Cancer Screening: Colonoscopy 07/09/2022 Depression Screening 07/09/2022 HIV Screening 07/09/2022 Hepatitis C Screening 07/09/2022 Social Influencers of Health Screening 07/09/2022 Breast Cancer Screening 04/03/2024 04/03/20 22, 06/15/2020, 04/13/2018 COVID-19 Vaccine ( - 2023-2 5 season) 2024 Influenza Vaccine (#1) 2024 Pneumococcal Vaccine: 50+ Years (1 of 1 - PCV) 2024 Zoster Vaccines (1 of 2) 2024 Cervical Cancer Screening: P ap Smear 08/23/2025 08/23/2022 HIB Vaccines Aged Out No longer eligi ble based on patient's age to complete this topic HPV Vaccines Aged Out No longer eligi ble based on patient's age to complete this topic Hepatitis A Vaccines Aged Out No long er eligible based on patient's age to complete this topic IPV Vaccines Aged Out No longer eligi ble based on patient's age to complete this topic MMR Vaccines Aged Out No longer eligi ble based on patient's age to complete this topic Meningococcal ACWY Vaccine Aged Out N o longer eligible based on patient's age to complete this topic Meningococcal B Vacine Aged Out No lo nger eligible based on patient's age to complete this topic Pneumococcal Vaccine: Pediatrics (0 to 5 Years) and At-Risk Patients (6 to 64 Years) Aged Out No longer eligible b ased on patient's age to complete this topic RSV Immunization Patients Under 20 months Aged Out No longer eligible b ased on patient's age to complete this topic Varicella Vaccines Aged Out No longer eligible based on patient's age to complete this topic Procedures Procedure Name Priority Date/Time Associated Diagnosis Comments PAP SMEAR Routine 08/23/2022 RIVKA SCREENING DIGITAL Routine 04/03/2022 1:31 PM EDT Encounter for screening mammogram for malignant neoplasm of breast from Last 3 Months or Most Recently Relevant to Health Maintenance Results * Pap smear (08/23/2022) 08/23/2022 Narrative HISTORICAL TESTING LAB RESULTING AGENCY - 09/02/2022 2:50 PM EST [id number] THINPREP PAP, IMAGED: NEGATIVE FOR SQUAMOUS INTRAEPITHELIAL LESION AND MALIGNANCY . REACTIVE CELLULAR CHANGES. SHIFT IN JOSÉ MIGUEL, SUGGESTIVE OF BACTERIAL VAGINOSIS. PIPER GRIFFIN , BROWN(ASCP) (CASE SCREENED 09 02 2022) MICHELLE POTTS M.D. , PATHOLOGIST (CASE ELECTRONICALLY SIGNED 09 02 2022) RESULT OF APTIMA HIGH RISK HPV ASSAY: HIGH RISK HPV: ??NEGATIVE (SEROTYPES 16,18,31,33,35,39,45,51,52,56,58,59,66,68) COMPLETED ON 2022-08-26 ADEQUACY: SATISFACTORY ENDOCERVICAL/TRANSFORMATION ZONE COMPONENT PRESENT. SOURCE: THINPREP PAP HPV ANY DX: ??REFLEX 16 AND 18, CERVICAL, IMAGED CLINICAL INFORMATION: HPV ANY DIAGNOSIS. HGSIL, GRADE 3 LOUIS, ON BIOPSY OF CERVIX, [795.0] us Lizzeth Lira MD LAB CYTOLOGY ORDERABLES Final Re sult HISTORICAL TESTING LAB RESULTING AGENCY * RIVKA SCREENING DIGITAL (04/03/2022 1:31 PM EDT) Anatomical Region Laterality Modality Mammography 03/31/2022 9:44 AM EDT Narrative 04/03/2022 1:31 PM EDT [facility] Diagnostic Imaging Department [address] [place] [address] Patient: ??DORITA INGRAM ?/Age/Sex: 1975 - 46 - F Unit#: ??[id number] ? Location/Status: ??SPDIMAM/REG CLI ? Mnemonic/Ordering Site: ??DIGSC/SPMAM Ordering Physician: ??REMIGIO MAHER MD [facility] Screening Digital - 04/02/22 - 820 EXAM: [facility] Screening Digital EXAM DATE AND TIME: 04/02/2022 8:22 AM HISTORY: ??Annual screening mammography. COMPARISON: ??06/25/2020 through 03/20/2017 TECHNIQUE: CC and MLO views of both breasts were obtained using full field digital mammography. Bilateral digital breast tomosynthesis was performed in the MLO projection. 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 TISSUE DENSITY: d. The breasts are extremely dense, which lowers the sensitivity of mammography. FINDINGS: No suspicious masses, grouped microcalcifications, or areas of architectural distortion are seen. The skin and vascularity are unremarkable. IMPRESSION: Stable mammographic appearance of the breasts. ??No evidence of malignancy is seen. A negative mammogram in the presence of a clinically suspicious palpable abnormality does not preclude the possibility of malignancy or alter the indications for biopsy. BI-RADS: ??Category 1: Negative RECOMMENDATION(S): 1: Routine screening mammogram BILATERAL in 1 year. 50466, 77163 3341F, 7025F Dictating Physician: ??ALEJANDRA SOLORZANO MD Electronically Signed by: ??ALEJANDRA SOLORZANO MD Dic Date/Time: ??04/03/22 1326 Sign date/Time: ??04/03/22 1331 Procedure Note Eliza Solorzano MD - 07/27/2022 [facility] Diagnostic Imaging Department [address] [place] [address] Patient: DORIAT INGRAM D.O.B./Age/Sex: 1975 - 46 - F Unit#: [id number] Location/Status: SPDIMAM/REG CLI Mnemonic/Ordering Site: [facility] Ordering Physician: REMIGIO MAHER MD [facility] Screening Digital - 04/02/22 - 820 EXAM: [facility] Screening Digital EXAM DATE AND TIME: 04/02/2022 8:22 AM HISTORY: Annual screening mammography. COMPARISON: 06/25/2020 through 03/20/2017 TECHNIQUE: CC and MLO views of both breasts were obtained using fullfield digital mammography. Bilateral digital breast tomosynthesis was performedin the MLO projection. 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 TISSUE DENSITY: d. The breasts are extremely dense, which lowers the sensitivity of mammography. FINDINGS: No suspicious masses, grouped microcalcifications, or areas ofarchitectural distortion are seen. The skin and vascularity are unremarkable. IMPRESSION: Stable mammographic appearance of the breasts. No evidence of malignancyis seen. A negative mammogram in the presence of a clinically suspicious palpable abnormality does not preclude the possibility of malignancy or alter the indications for biopsy. BI-RADS: Category 1: Negative RECOMMENDATION(S): 1: Routine screening mammogram BILATERAL in 1 year. 12124, 30276 3341F, 7025F Dictating Physician: ALEJANDRA SOLORZANO MD Electronically Signed by: ALEJANDRA SOLORZANO MD Dic Date/Time: 04/03/22 1326 Sign date/Time: 04/03/22 1331 Remigio Maher MD IMG BI PROCEDURES Final Result from Last 3 Months or Most Recently Relevant to Health Maintenance Advance Directives Documents on File Type Date Recorded Patient Information Technology Assistant Expl anation Health Care Decision (hx) 01/07/2022 AD HIGUERA DIRECTIVE Health Care Decision (hx) 01/07/2022 AD HIGUERA DIRECTIVE Health Care Decision (hx) 01/07/2022 AD HIGUERA DIRECTIVE Care Teams Engine Monitor Relationship Specialty Start Date End Date Robert Barajas MD [address] [place] [phone] PCP - General Internal Medicine 12/23/21
--- OUTSIDE RECORDS SUMMARY | 2024-11-05 14:36 | XMS_ITS | Clinical Summary ---
Author Organization [facility] Address [address] [place] [address] Care Team Providers Care Sewer Pipe Layer Helper Name Role Phone Community, Pcp Unavailable Unavailable Robert Barajas MD Primary Care Provider Unavailabl e Allergies No known active allergies Medications Medication Sig Dispensed Refills Start Date End Date Status levonorgestrel-ethi nyl estradiol (AVIANE,ALESSE,LESS DEBRA) 0.1-20 MG-MCG per tablet Take 1 Tablet by mouth daily. 0 Active propranolol (INDERAL) 20 MG tablet Take 20 mg by mouth 3 times daily. 0 Active chlorhexidine (Hibiclens) 4 % external liquid Preop surgical skin wash. Please follow provided instructions from doctor. 120 mL 0 12/23/2021 Active Active Problems Problem Noted Date High grade squamous intraepi thelial lesion (HGSIL), grade 3 LOUIS, on biopsy of cervix 12/23/2021 Family History Medical History Relation Name Comments Stroke Father Relation Name Status Comments Father Social History Tobacco Use Types Packs/Day Years Used Date Smoking Tobacco: Never Smokeless Tobacco: Never Tobacco Cessation:Counseling Given: Not Answered Sex Assigned at Date Recorded Not on file Last Filed Vital Signs Vital Sign Reading Time Taken Comments Blood Pressure 131/82 08/23/2022 11:44 AM EST Pulse 61 08/23/2022 11:44 AM EST Temperature 36.2 ??C (97.1 ??F) 08/23/2022 11:[address] Respiratory Rate - - Oxygen Saturation - - Inhaled Oxygen Concentration - - Weight 67.6 kg (149 lb) 08/23/2022 11:44 AM EST Height - - Body Mass Index - - Plan of Treatment Health Maintenance Due Date Last Done Comments Covid-19 Vaccine (#1) 02/16/1975 DTAP/TDAP/TD (1 - Tdap) 1993 CHOLESTEROL SCREENING 1994 BASELINE HEALTH EXAM 40-64 2014 MAMMOGRAM 2014 INFLUENZA (#1) 2024 BMI CHECK/ADVISE 08/07/2024 COLON CANCER SCREENING 2024 SHINGLES VACCINE (1 of 2) 2024 CERVICAL CANCER SCREENING 08/23/2025 08/23/2022, PNEUMOCOCCAL VACCINE FOR HIG H RISK PATIENTS (#1) 2039 Care Teams Sewer Pipe Layer Helper Relationship Specialty Start Date End Date Robert Barajas MD PCP - General Internal Medicine 12/23/21 [facility], Pcp 11/19/07
== END 2024-11-05 13:01 | disposition home or self-care (01) ==
LOC: HO.HMCC 12:23
PROVIDERS: PCP Internal Medicine; Visit Provider Internal Medicine
DX: Z00.01 Encounter for general adult medical examination with abnormal findings (principal); R00.2 Palpitations; Z68.26 Body mass index [BMI] 26.0-26.9, adult; E66.3 Overweight; G43.819 Other migraine, intractable, without status migrainosus; Z12.11 Encounter for screening for malignant neoplasm of colon; Z82.49 Family history of ischemic heart disease and other diseases of the circulatory system; Z82.3 Family history of stroke

== ENCOUNTER 2024-11-26 09:06 | Outpatient (AMB) | payer BC, SELFPAY ==
[2024-11-26 09:08] VITALS: BP 116/80; PULSE 89; RESP 16; TEMP 36.9; O2SAT 98; BMI 26.3
--- NOTE | 2024-11-26 09:08 | A.OFFPC_ITS ---
Vital Signs 11/26/24 09:08 Height 5 ft 4 in Weight 153 lb BMI 26.3 BP 116/80 Blood Pressure Location Rt brachial Position Sitting Respiration 16 Pulse 89 Pulse Source Pulse Oximeter Temp 98.4 F Temp Source Oral Pulse Oximetry (%) 98 Oxygen Delivery Method Room Air Intake Visit Reasons: 3 weeks f/up Allergies No Known Allergies Allergy (Verified 11/26/24 09:09) Medication List - Last Reconciled 11/26/24 by Robert Barajas MD amitriptyline 25 mg PO BEDTIME 30 days propranolol 20 mg PO DAILY 90 days Tobacco use date assessed: 11/26/24 Dental Screening Dental Screen Date: 11/26/24 Did you have a dental visit in the last 12 months?: Yes Did you have a dental problem in the last 6 months where you did not have access to dental care?: No Was dental information given to patient?: Patient has dentist HPI 3 weeks f/up HPI Details History - The patient is a 49-year-old female pr esenting with migraines and palpitations. - The patient reports experiencing migra анна, which have recently shown slight improvement. The headaches have decreased in frequency, and she is sleeping well at night. She is not taking both propranolol and amitriptyline 25 mg at night tolerating medications - The patient reports side effects of current medications, including dry mouth and excessive morning fatigue if taken too late at night. - Consulted lab results show normal kidn ey function, liver enzymes, sugar levels, cholesterol, CBC, with no anemia or signs of inflammation. - The patient has been experiencing palp itations intermittently, with no current episodes of irregularity. She has Holter monitor and echocardiogram appointment coming up tomorrow Problem List - Migraine - Palpitations Patient Instructions - Consider taking half a tablet to reduc e morning grogginess. - Continue taking propranolol as prescri bed. - Monitor for and report any new or wors ening symptoms. - Await results for echo and heart monit or tests. - follow-up six-month or earlier dependi bora on Holter monitor and echo reports Review of Systems - General: No fever no chills - Neurological: No headaches no dizziness - Ear nose throat: No sore throat no hearing difficulty no ear pain - Cardiovascular: No syncope, no chest pain, no palpitations - Gastrointestinal: No nausea vomiting or diarrhea - Endocrine: No polyuria polydipsia no heat intolerance - Genitourinary: No dysuria , no blood in urine Physical Exam General: No acute distress HEENT: No acute findings Neck: Supple Respiratory system: Able to talk in full sentences, no audible wheeze Cardiovascular: S1-S2 regular in rate and rhythm, no irregularity noted Gastrointestinal: No pain Extremities: No new findings 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 SEWING MACHINE OPERATOR: Alert awake oriented x3 motor sensory intact Skin: Normal turgor PFSH Social History Housing: House Alcohol intake: current Alcohol intake frequency: a few times a month Patient Tobacco Use Status: Never used Tobacco e-Cigarette/Vaping Use: Never Used service: No Current occupational status: employed Cognitive needs: No Hearing needs: No Vision needs: No Questionnaire Thrive Questionnaire Date Thrive assessed: 11/05/24 I am a: Patient What is your living situation today?: I have a steady place to live Within the past 12 months, did the food you bought not last and you didn't have the money to get more?: I choose not to answer this question Within the past 12 months, did you worry whether your food would run out before you got money to buy more?: I choose not to answer this question Do you have trouble paying for medicines?: I choose not to answer this question Do you have trouble getting transportation to medical appointments?: I choose not to answer this question Do you have trouble paying your heating and electricity bill?: I choose not to answer this question Do you have trouble taking care of your child, family member or friend?: I choose not to answer this question Do you have trouble with day-to-day activities such as bathing, preparing meals, shopping, managing finances, etc.?: I choose not to answer this question Are you currently unemployed and looking for a job?: I choose not to answer this question Are you interested in more education?: I choose not to answer this question Please select the resources that you would like help with: None THRIVE Score: 0 PATRICIA-7 AMB Questionnaire PATRICIA-7 Date PATRICIA - 7 assessed: 11/05/24 Source: Developed by Drs. Daljit Ahuja, Angelina Ybarra, Jose Man and colleagues, with an educational sunny from [email or web address]. Physical exam (Primary Care) Vital Signs: Last Vital Signs Temp 98.4 F 11/26/24 09:08 Pulse 89 11/26/24 09:08 Resp 16 11/26/24 09:08 BP 116/80 11/26/24 09:08 Pulse Ox 98 11/26/24 09:08 Oxygen Delivery Method Room Air 11/26/24 09:08 BMI result Body Mass Index 26.3 Tobacco/Smoking Status: Tobacco use Status Tobacco use date assessed 11/26/24 11/26/24 09:12 Patient Tobacco Use Status Never used Tobacco 11/26/24 09:12 e-Cigarette/Vaping Use Never Used 11/26/24 09:12 Thrive Assessment: Date of Thrive Assessment Date Thrive assessed 11/05/24 11/26/24 09:12 Coding Level of Care Code Est Pt Level 3 (47181) Diagnoses Other migraine without status migrainosus, intractable G43.819 Migraine type: other Status migrainosus presence: without status migrainosus Intractability: intractable Palpitation R00.2 Assessment & Plan Assessment & Plan (1) Migraine headache: Code(s): G43.909 - Migraine, unspecified, not intractable, without status migrainosus Category: Medical Qualifiers: Migraine type: other Status migrainosus presence: without status migrainosus Intractability: intractable Qualified Code(s): G43.819 - Other migraine, intractable, without status migrainosus (2) Palpitation: Code(s): R00.2 - Palpitations Category: Medical Plan History - The patient is a 49-year-old female presenting with migraines and palpitations. - The patient reports experiencing migraines, which have recently shown slight improvement. The headaches have decreased in frequency, and she is sleeping well at night. She is not taking both propranolol and amitriptyline 25 mg at night tolerating medications - The patient reports side effects of the current medications, including dry mouth and excessive morning fatigue if taken too late at night. - Consulted lab results show normal kidney function, liver enzymes, sugar levels, cholesterol, CBC, with no anemia or signs of inflammation. - The patient has been experiencing palpitations intermittently, with no current episodes of irregularity. She has Holter monitor and echocardiogram appointment coming up tomorrow Problem List - Migraine - Palpitations Patient Instructions - Consider taking half a tablet to reduce morning grogginess. - Continue taking propranolol as prescribed. - Monitor for and report any new or worsening symptoms. - Await results for echo and heart monitor tests. - follow-up six-month or earlier depending on Holter monitor and echo reports Medications: Changed From amitriptyline 25 mg PO BEDTIME 30 days 30 tabs 0RF To amitriptyline 25 mg PO BEDTIME 90 days 90 tabs 1RF
--- OUTSIDE RECORDS SUMMARY | 2024-11-26 09:42 | XMS_ITS | Clinical Summary ---
Author Organization [facility] ity Address [address] [place] [id number] Care Team Providers Care Decating Machine Operator Name Role Phone Robert Barajas MD Primary Care Provider [phone] Surgical History Surgery Date Site/Laterality Comments OTHER [...] Vaccine ( - 2023-2 5 season) 2024 Pneumococcal Vaccine: 50+ Years (1 of 1 - PCV) 2024 Zoster Vaccines (1 of 2) 2024 Influenza Vaccine (Season Ended) 2025 Cervical Cancer Screening: P ap Smear 08/23/2025 [...] age to complete this topic Meningococcal B Vaccine Aged Out No l onger eligible based on patient's age to complete [...] RESULTING AGENCY - 09/02/2022 2:50 PM EST [id number] THINPREP PAP, IMAGED: NEGATIVE FOR SQUAMOUS INTRAEPITHELIAL [...] AM EDT Narrative 04/03/2022 1:31 PM EDT [facility] Diagnostic Imaging Department [address] [place] [address] Patient: ??DORITA INGRAM ?/Age/Sex: 1975 - 46 - F Unit#: ??[id number] ? Location/Status: ??SPDIMAM/REG CLI ? Mnemonic/Ordering Site: ??DIGSC/SPMAM Ordering Physician: ??REMIGIO MAHER MD [facility] Screening Digital - 04/02/22 - 820 EXAM: [facility] Screening Digital EXAM DATE AND TIME: 04/02/2022 8:22 AM HISTORY: ??Annual screening mammography. COMPARISON: ??06/25/2020 through 03/20/2017 TECHNIQUE: CC and MLO views of both breasts were obtained using full field digital mammography. Bilateral digital breast tomosynthesis was performed in the MLO projection. 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 TISSUE DENSITY: d. The breasts [...] Routine screening mammogram BILATERAL in 1 year. 34946, 58958 3341F, 7025F Dictating Physician: ??ALEJANDRA SOLORZANO MD Electronically Signed by: ??ALEJANDRA SOLORZANO MD Dic Date/Time: ??04/03/22 1326 Sign date/Time: ??04/03/22 1331 Procedure Note Eliza Solorzano MD - 07/27/2022 [facility] Diagnostic Imaging Department [address] [place] [address] Patient: DORITA INGRAM/Age/Sex: 1975 - 46 - F Unit#: [id number] Location/Status: SPDIMAM/REG CLI Mnemonic/Ordering Site: [facility] Ordering Physician: REMIGIO MAHER MD [facility] Screening Digital - 04/02/22 - 820 EXAM: [facility] Screening Digital EXAM DATE AND TIME: 04/02/2022 8:22 AM HISTORY: Annual screening mammography. COMPARISON: 06/25/2020 through 03/20/2017 TECHNIQUE: CC and MLO views of both breasts were obtained using fullfield digital mammography. Bilateral digital breast tomosynthesis was performedin the MLO projection. 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 TISSUE DENSITY: d. The breasts are [...] Routine screening mammogram BILATERAL in 1 year. 40689, 24678 3341F, 7025F Dictating Physician: ALEJANDRA SOLORZANO MD Electronically Signed by: ALEJANDRA SOLORZANO MD Dic Date/Time: 04/03/22 1326 Sign date/Time: 04/03/22 1331 Remigio Maher MD IMG BI PROCEDURES Final Result from Last 3 Months or Most Recently Relevant to Health Maintenance Advance Directives Documents on File Type Date Recorded Patient Environmental Emergencies Assistant Expl anation Health Care Decision (hx) 01/07/2022 AD HIGUERA DIRECTIVE Health Care Decision (hx) 01/07/2022 AD HIGUERA DIRECTIVE Health Care Decision (hx) 01/07/2022 AD HIGUERA DIRECTIVE Care Teams Decating Machine Operator Relationship Specialty Start Date End Date Robert Barajas MD [address] [place] [address] PCP - General Internal Medicine 12/23/21
== END 2024-11-26 09:22 | disposition home or self-care (01) ==
LOC: HO.HMCC 09:06
PROVIDERS: PCP Internal Medicine; Visit Provider Internal Medicine
DX: G43.819 Other migraine, intractable, without status migrainosus (principal); R00.2 Palpitations

== ENCOUNTER → 2024-11-26 09:06 | Outpatient (BNVA) | payer BC, SELFPAY | PROVIDERS: PCP Internal Medicine; Visit Provider Internal Medicine ==

== ENCOUNTER → 2024-11-27 08:47 | Outpatient (REF) | payer BC, SELFPAY ==
--- NOTE | 2024-11-27 08:50 | CA_ITS ---
Transthoracic Echocardiogram Patient (Last, First, Middle): Roxanne Joseph, Gender: Female Date of : 1975 Age: 49 Procedure Date: 11/27/2024 Procedure Type: Transthoracic Echocardiogram Location: OP Height: 162.56 cm Weight: 69.4 kg BSA: 1.75 m2 Heart Rate: 65 bpm BP: 116 / 80 mmHg Clerk Specialist: SB Referring MD: Robert Barajas MD Symptoms: Z82.3 - Family history of stroke Study Quality: Adequate ECG Rhythm: Sinus Conclusions: - The left ventricular systolic function is normal. The visually estimated ejection fraction is between 60-65%. - No obvious valvular pathology seen on this study. Findings Left Ventricle Normal left ventricular cavity size. The left ventricular systolic function is normal. The visually estimated ejection fraction is between 60-65%. There is no evidence of regional wall motion abnormalities. Diastolic function is normal for age. There is mild septal asymmetric hypertrophy. Right Ventricle Normal right ventricular cavity size and systolic function. Atria Both atria are normal in size. Aortic Valve There is a normal trileaflet aortic valve. There is no aortic valve stenosis. There is no aortic valve regurgitation. Mitral Valve The mitral valve appears normal. There is no mitral valve regurgitation. There is no mitral valve stenosis. Pulmonic Valve The pulmonic valve is likely normal. Tricuspid Valve Normal tricuspid valve structure. There is mild tricuspid valve regurgitation. There is no evidence of pulmonary hypertension. Great Vessels The asc aorta is normal in size. Venous The inferior vena cava is normal in size and collapses greater than 50% with inspiration. Pericardium/Pleural There is no evidence of pericardial effusion. Prior Study Comparison No prior study available for comparison. Recommendations, Care & Conclusions No obvious valvular pathology seen on this study. Measurements 2D Linear Measurements IVSd: 1.05 0.6-0.9/0.6-1.0 cm LVIDd: 5.02 3.9-5.3/4.2-5.9 cm LVIDd Index: 2.87 2.4-3.2/2.2-3.1 cm/m2 LVIDs: 3.19 2.0-3.6 cm LVPWd: 0.57 0.7-1.1 cm LA Diam: 3.60 2.7-3.8/3.0-4.0 cm LAIDs Index: 2.06 1.5-2.3 cm/m2 LV Mass: 173.04 67-162/88-224 g LV Mass Index: 98.88 43-95/49-115 g/m2 LVOT Diam: 1.90 3.0+(-)1.3 cm 2D Systolic Function EF 4C: 65.50 >55% EF 2C: 72.10 >55% EF BiP: 69.60 >55% Mitral Valve MV Pk E: 0.89 MV PK A: 0.63 MV Decel Time: 182.00 E/A: 1.40 E'Lateral: 10.60 E'Medial: 6.85 E/E' Med: 13.00 E/E' Lat: 8.40 PHT: 53.00 MVA PHT: 4.15 Decel Foard: 4.89 Aortic Valve AoV Pk Zaheer: 1.25 AoV Pk Grad: 6.00 ALEJANDRO: 2.51 LVOT LVOT Pk Zaheer: 1.13 LVOT Mn Zaheer: 0.78 LVOT VTI: 0.24 LVOT Pk Grad: 5.00 LVOT Mn Grad: 3.00 LVOT Diam: 1.90 LVOT Area: 2.84 Diastolic Function MV Pk E: 0.89 MV Pk A: 0.63 E/A: 1.40 E'Medial: 6.85 E/E' Med: 13.00 E' Laterial: 10.60 E/E' Lat: 8.40 Right Ventricle TAPSE (mm): 23.50 Tricuspid Valve TR Pk Zaheer: 2.07 TR Pk Grad: 17.00 RA Press: 3.00 RVSP: 20.00 Great Vessels Aorta Sinus of Valsalva: 3.10 2.0-3.5 cm Ao Asc: 3.50 2.1-3.4 cm Pulmonary Veins Pulm Vein S/D 1.20 Pulmonary Valve PV Pk Zaheer: 0.95 Peak PV Grad: 4.00 Updated in Other Vendor System with Status of Final Raphael Denny MD electronically signed on 11/27/2024 3:40:03 PM with status of Final
--- OUTSIDE RECORDS SUMMARY | 2024-11-27 09:19 | XMS_ITS | Encounter Summary ---
Author Organization [facility] Address [address] [place] [address] Care Team Providers Care Agricultural Equipment Sales Engineer Name Role Phone Community, Pcp Unavailable Unavailable Robert Barajas MD Primary Care Provider Unavailabl e Encounter Details Date Type Department Care Team Description 12/27/2021 Transfer Records Medical Records [address] [place] [address] Remigio Maher Social History Tobacco Use Types Packs/Day Years Used Date Smoking Tobacco: Never Smokeless Tobacco: Never Sex Assigned at Date Recorded Not on file documented as of this encounter Plan of Treatment Not on file documented as of this encounter Visit Diagnoses Not on filedocumented in this encounter Care Teams Agricultural Equipment Sales Engineer Relationship Specialty Start Date End Date Robert Barajas MD PCP - General Internal Medicine 12/23/21 Community, Pcp 11/19/07 documented as of this encounter
--- OUTSIDE RECORDS SUMMARY | 2024-11-27 09:19 | XMS_ITS | Clinical Summary ---
Author Organization [facility] ity Address [address] [place] [phone] Care Team Providers Care Drink Mixer Name Role Phone Robert Barajas MD Primary Care Provider [phone] Surgical History Surgery Date Site/Laterality Comments OTHER [...] RESULTING AGENCY - 09/02/2022 2:50 PM EST [id number] THINPREP PAP, IMAGED: NEGATIVE FOR SQUAMOUS INTRAEPITHELIAL [...] sult HISTORICAL TESTING LAB RESULTING AGENCY * [facility] SCREENING DIGITAL (04/03/2022 1:31 PM EDT) Anatomical Region Laterality Modality Mammography 03/31/2022 9:44 AM EDT Narrative 04/03/2022 1:31 PM EDT [facility] Diagnostic Imaging Department [address] [place] [address] Patient: ??DORITA INGRAM ?/Age/Sex: 1975 - 46 - F Unit#: ??[id number] ? Location/Status: ??SPDIMAM/REG CLI ? Mnemonic/Ordering Site: ??DIGSC/SPMAM Ordering Physician: ??REIMGIO MAHER MD [facility] Screening Digital - 04/02/22 - 820 EXAM: [facility] Screening Digital EXAM DATE AND TIME: 04/02/2022 8:22 AM HISTORY: ??Annual screening mammography. COMPARISON: ??06/25/2020 through 03/20/2017 TECHNIQUE: CC and MLO views of both breasts were obtained using full field digital mammography. Bilateral digital breast tomosynthesis was performed in the MLO projection. 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 TISSUE DENSITY: d. The breasts [...] Routine screening mammogram BILATERAL in 1 year. 08433, 68632 3341F, 7025F Dictating Physician: ??ALEJANDRA SOLORZANO MD Electronically Signed by: ??ALEJANDRA SOLORZANO MD Dic Date/Time: ??04/03/22 1326 Sign date/Time: ??04/03/22 1331 Procedure Note Eliza Solorzano MD - 07/27/2022 [facility] Diagnostic Imaging Department [address] [place] [address] Patient: DORITA INGRAM/Age/Sex: 1975 - 46 - F Unit#: [id number] Location/Status: SPDIMAM/REG CLI Mnemonic/Ordering Site: [facility] Ordering Physician: REMIGIO MAHER MD [facility] Screening Digital - 04/02/22 - 820 EXAM: [facility] Screening Digital EXAM DATE AND TIME: 04/02/2022 8:22 AM HISTORY: Annual screening mammography. COMPARISON: 06/25/2020 through 03/20/2017 TECHNIQUE: CC and MLO views of both breasts were obtained using fullfield digital mammography. Bilateral digital breast tomosynthesis was performedin the MLO projection. Computer aided detection with the [employer].2[employer]as employed. TISSUE DENSITY: d. The breasts are [...] Routine screening mammogram BILATERAL in 1 year. 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
--- OUTSIDE RECORDS SUMMARY | 2024-11-27 09:19 | XMS_ITS | Encounter Summary ---
Author Organization [facility] Address [address] [place] [address] Care Team Providers Care Nuclear Medicine Officer Name Role Phone Community, Pcp Primary Care Provider Unavailabl e Community, Pcp Unavailable Unavailable Robert Barajas MD Primary Care Provider Unavailabl e Encounter Details Date Type Department Care Team Description 12/01/2021 Dining Server Report Medical Records [address] [place] [address] Remigio Maher Social History Tobacco Use Types Packs/Day Years Used Date Smoking Tobacco: Never Assessed Sex Assigned at Date Recorded Not on file documented as of this encounter Plan of Treatment Not on file documented as of this encounter Visit Diagnoses Not on filedocumented in this encounter Care Teams Nuclear Medicine Officer Relationship Specialty Start Date End Date Community, Pcp PCP - General Internal Medicine 01/27/15 12/22/21 Robert Barajas MD PCP - General Internal Medicine 12/23/21 Community, Pcp 11/19/07 documented as of this encounter
--- OUTSIDE RECORDS SUMMARY | 2024-11-27 09:19 | XMS_ITS | Encounter Summary ---
Author Organization [facility] Address [address] [place] [address] Care Team Providers Care Pharmaceutical Development Technician Name Role Phone Community, Pcp Unavailable Unavailable Robert Barajas MD Primary Care Provider Unavailabl e Encounter Details Date Type Department Care Team Description 01/07/2022 Hospital Medical Records [address] [place] [address] Lizzeth Lira MD [address] [place] [address] for Breast Health and Gynecologic [place] [address] Social History Tobacco Use Types Packs/Day Years Used Date Smoking Tobacco: Never Smokeless Tobacco: Never Sex Assigned at Date Recorded Not on file documented as of this encounter Plan of Treatment Not on file documented as of this encounter Visit Diagnoses Not on filedocumented in this encounter Care Teams Pharmaceutical Development Technician Relationship Specialty Start Date End Date Robert Barajas MD PCP - General Internal Medicine 12/23/21 Community, Pcp 11/19/07 documented as of this encounter
--- OUTSIDE RECORDS SUMMARY | 2024-11-27 09:19 | XMS_ITS | Encounter Summary ---
Author Organization [facility] Address [address] [place] [address] Care Team Providers Care Jack Of All Trades Name Role Phone Community, Pcp Unavailable Unavailable Robert Barajas MD Primary Care Provider Unavailabl e Encounter Details Date Type Department Care Team Description 12/27/2021 Release of Information Medical Records [address] [place] [address] Abstract, Provider Social History Tobacco Use Types Packs/Day Years Used Date Smoking Tobacco: Never Smokeless Tobacco: Never Sex Assigned at Date Recorded Not on file documented as of this encounter Plan of Treatment Not on file documented as of this encounter Visit Diagnoses Not on filedocumented in this encounter Care Teams Jack [employer] All Trades Relationship Specialty Start Date End Date Robert Barajas MD PCP - General Internal Medicine 12/23/21 Community, Pcp 11/19/07 documented as of this encounter
== END ==
LOC: HO.CARD 08:47
PROVIDERS: PCP Internal Medicine; Visit Provider Internal Medicine
DX: R00.2 Palpitations (principal); Z82.3 Family history of stroke; Z82.49 Family history of ischemic heart disease and other diseases of the circulatory system
CPT/HCPCS: 93242; 93306

== ENCOUNTER → 2024-11-27 08:50 | Outpatient (BNV) | payer BC, SELFPAY | PROVIDERS: PCP Internal Medicine; Visit Provider Internal Medicine | DX: R00.2 Palpitations (principal) | CPT/HCPCS: 93306 ==

== ENCOUNTER 2024-12-19 08:17 | Outpatient (AMB) | payer BC, SELFPAY ==
--- OUTSIDE RECORDS SUMMARY | 2024-12-19 08:30 | XMS_ITS | Clinical Summary ---
Author Organization [facility] Address [address] [place] [address] Care Team Providers Care Kitchen Chef Name Role Phone Community, Pcp Unavailable Unavailable [...] BASELINE HEALTH EXAM 40-64 2014 MAMMOGRAM 2014 BMI CHECK/ADVISE 08/07/2024 COLON CANCER SCREENING 2024 SHINGLES VACCINE (1 of 2) 2024 INFLUENZA (Season Ended) 2025 CERVICAL CANCER SCREENING 08/23/2025 08/23/2022, PNEUMOCOCCAL VACCINE FOR HIG H RISK PATIENTS (#1) 2039 Care Teams Kitchen Chef Relationship Specialty Start Date End Date Robert Barajas MD PCP - General Internal Medicine 12/23/21 [facility] Pcp 11/19/07
--- OUTSIDE RECORDS SUMMARY | 2024-12-19 08:30 | XMS_ITS | Encounter Summary ---
Author Organization [facility] Address [address] [place] [address] Care Team Providers Care Latin Teacher Name Role Phone Community, Pcp Unavailable Unavailable Robert Barajas MD Primary Care Provider Unavailabl e Encounter Details Date Type Department Care Team Description 12/27/2021 Transfer Records Medical Records [address] [place] [address] Remigio Maher Social History Tobacco Use Types Packs/Day Years Used Date Smoking Tobacco: Never Smokeless Tobacco: Never Sex Assigned at Date Recorded Not on file documented as of this encounter Plan of Treatment Not on file documented as of this encounter Visit Diagnoses Not on filedocumented in this encounter Care Teams Latin Teacher Relationship Specialty Start Date End Date Robert Barajas MD PCP - General Internal Medicine 12/23/21 Community, Pcp 11/19/07 documented as of this encounter
--- OUTSIDE RECORDS SUMMARY | 2024-12-19 08:30 | XMS_ITS | Encounter Summary ---
Author Organization [facility] Address [address] [place] [address] Care Team Providers Care Interactive Project Manager Name Role Phone Robert Barajas MD Primary Care Provider Encounter Details Date Type Department Care Team (Latest Contact Info) Description 12/17/[address] [facility] - Main Lab [address] [place] [address] Remigio Maher MD [address] [address] Encounter for gynecological examination (general) (routine) without abnormal findings Social History Tobacco Use Types Packs/Day Years Used Date Smoking Tobacco: Never Smokeless Tobacco: Never Comments Unknown Sex and Gender Information Value Date Recorded Sex Assigned at Not on file Legal Sex Female 9:49 PM EST Gender Identity Not on file Sexual Orientation Not on file documented as of this encounter Plan of Treatment Pending Results Name Type Priority Associated Diagnoses Date /Time Pap smear Pathology and Cytology Routine Encounter for gynecological examination (general) (routine) without abnormal findings 12/16/2024 12:00 AM EDT documented as of this encounter Procedures Procedure Name Priority Date/Time Associated Diagnosis Comments HPV WITH REFLEX GENOTYPE Routine 12/16/2024 12:00 AM EDT Encounter for gynecological examination (general) (routine) without abnormal findings documented in this encounter Results * HPV with reflex genotype (12/16/2024 12:00 AM EDT) HPV Negative Negative LAB MICROBIOLOGY METHOD 12/17/2024 1:49 PM EDT [facility] Brushing/Spatula Cervix uteri structure / Unknown 12/16/2024 12/17/2024 6:37 AM EDT us Remigio Maher MD LAB MOLECULAR DIAGNOSTICS DARYN RODRIGUEZ Final Result [facility] [address] [place] [address], documented in this encounter Visit Diagnoses Diagnosis Encounter for gynecological examination (general) (routine) without abnormal findings documented in this encounter Care Teams Interactive Project Manager Relationship Specialty Start Date End Date Robert Barajas MD [address] [place] [address] PCP - General Internal Medicine 12/23/21 documented as of this encounter
--- OUTSIDE RECORDS SUMMARY | 2024-12-19 08:30 | XMS_ITS | Clinical Summary ---
Author Organization [address] Address [address] [place] [address] Phone Care Team Providers Care Floorperson Name Role Phone Robert Barajas MD Primary Care Provider Encounters Date Type Department Care Team Description 12/17/2024 Lab Requisition [facility] - Main Lab [address] [place] [id number] Remigio Maher MD Encounter for gynecological examination (general) (routine) without abnormal findings from Last 3 Months Surgical History Surgery Date Site/Laterality Comments OTHER [...] 04/03/2024 04/03/20 22, 06/15/2020, 04/13/2018 COVID-19 Vaccine (1 - 2023-2 5 season) 2024 Pneumococcal Vaccine: 50+ Years (1 of 1 - PCV) 2024 Zoster Vaccines (1 of 2) 2024 Influenza Vaccine (Season Ended) 2025 Cervical Cancer Screening: HPV 12/16/2029 12/16/2024 HIB Vaccines Aged Out No longer eligi [...] gynecological examination (general) (routine) without abnormal findings RIVKA SCREENING DIGITAL Routine 04/03/2022 1:31 PM EDT Encounter for screening mammogram for malignant neoplasm of breast from Last 3 Months or Most Recently Relevant to Health Maintenance Results * HPV with reflex genotype (12/16/2024 12:00 AM EDT) HPV Negative Negative LAB MICROBIOLOGY METHOD 12/17/2024 1:49 PM EDT [facility] Brushing/Spatula Cervix uteri structure / Unknown 12/16/2024 12/17/2024 6:37 AM EDT Remigio Maher MD LAB MOLECULAR DIAGNOSTICS DARYN RODRIGUEZ Final Result [facility] [address] [place] [address], * RIVKA SCREENING DIGITAL (04/03/2022 1:31 PM EDT) Anatomical Region Laterality Modality Mammography 03/31/2022 9:44 AM EDT Narrative 04/03/2022 1:31 PM EDT [facility] Diagnostic Imaging Department [address] [place] [address] Patient: ??DORITA INGRAM ?/Age/Sex: 1975 - 46 - F Unit#: ??[id number] ? Location/Status: ??SPDIMAM/REG CLI ? Mnemonic/Ordering Site: ??DIGSC/SPMAM Ordering Physician: ??REMIGIO MAHER MD Rivka Screening Digital - 04/02/22820 EXAM: Rivka Screening Digital EXAM DATE AND TIME: 04/02/2022 8:22 AM HISTORY: ??Annual screening mammography. COMPARISON: ??06/25/2020 through 03/20/2017 TECHNIQUE: CC and MLO views of both breasts were obtained using full field digital mammography. Bilateral digital breast tomosynthesis was performed in the MLO projection. Computer aided detection with the Epoxy 7.2-H was employed. TISSUE DENSITY: d. The breasts [...] Routine screening mammogram BILATERAL in 1 year. [address]222, 27883 3341F, 7025F Dictating Physician: ??ALEJANDRA SOLORZANO MD Electronically Signed by: ??ALEJANDRA SOLORZANO MD Dic Date/Time: ??04/03/22 1326 Sign date/Time: ??04/03/22 1331 Procedure Note Eliza Solorzano MD - 07/27/2022 [facility] Diagnostic Imaging Department [address] [place], [place] [id number] Patient: DORITA INGRAM /Age/Sex: 1975 - 46 - F Unit#: [id number] [facility] Mnemonic/Ordering Site: [facility] Ordering Physician: REMIGIO MAHER MD Rivka Screening Digital - 04/02/22 - 820 EXAM: Rivka Screening Digital EXAM DATE AND TIME: 04/02/2022 8:22 AM HISTORY: Annual screening mammography. COMPARISON: 06/25/2020 through 03/20/2017 TECHNIQUE: CC and MLO views of both breasts were obtained using fullfield digital mammography. Bilateral digital breast tomosynthesis was performedin the MLO projection. Computer aided detection with the YouFetch.2-Positionlyas employed. TISSUE DENSITY: d. The breasts are [...] Routine screening mammogram BILATERAL in 1 year. 29503, 27321 3341F, 7025F Dictating Physician: ALEJANDRA SOLORZANO MD Electronically Signed by: ALEJANDRA SOLORZANO MD Dic Date/Time: 04/03/22 1326 Sign date/Time: 04/03/22 1331 Remigio Maher MD IMG BI PROCEDURES Final Result from Last 3 Months or Most Recently Relevant to Health Maintenance Insurance [facility] Advance Directives Documents on File Type Date Recorded Patient Assistant Track Coach Expl anation Health Care Decision (hx) 01/07/2022 AD HIGUERA DIRECTIVE Health Care Decision (hx) 01/07/2022 AD HIGUERA DIRECTIVE Health Care Decision (hx) 01/07/2022 AD HIGUERA DIRECTIVE Care Teams Floorperson Relationship Specialty Start Date End Date Robert Barajas MD [address] [place] [address] PCP - General Internal Medicine 12/23/21
--- OUTSIDE RECORDS SUMMARY | 2024-12-19 08:30 | XMS_ITS | Encounter Summary ---
Author Organization [facility] Address [address] [place] [address] Care Team Providers Care Digital Media Analyst Name Role Phone Community, Pcp Unavailable Unavailable Robert Barajas MD Primary Care Provider Unavailabl e Encounter Details Date Type Department Care Team Description 01/07/2022 Hospital Medical Records [address] [place] [address] Lizzeth Lira MD [address] [place] [address] for Breast Health [place] [address] Social History Tobacco Use Types Packs/Day Years Used Date Smoking Tobacco: Never Smokeless Tobacco: Never Sex Assigned at Date Recorded Not on file documented as of this encounter Plan of Treatment Not on file documented as of this encounter Visit Diagnoses Not on filedocumented in this encounter Care Teams Digital Media Analyst Relationship Specialty Start Date End Date Robert Barajas MD PCP - General Internal Medicine 12/23/21 Community, Pcp 11/19/07 documented as of this encounter
--- NOTE | 2024-12-19 08:47 | MHC.PC.OV ---
Intake Visit Reasons: Discuss Holter Report Allergies No Known Allergies Allergy (Verified 12/19/24 08:49) Medication List - Last Reconciled 12/19/24 by Robert Barajas MD amitriptyline 25 mg PO BEDTIME 90 days propranolol 20 mg PO DAILY 90 days Tobacco use date assessed: 12/19/24 Dental Screening Dental Screen Date: 12/19/24 Did you have a dental visit in the last 12 months?: Yes Did you have a dental problem in the last 6 months where you did not have access to dental care?: No Was dental information given to patient?: Patient has dentist HPI Discuss Holter Report HPI Details History - The patient is a 49-year-old female presenting with palpitations. - The patient reports that her palpitations have been stable recently. - Previous imaging studies of the heart were unremarkable, revealing a strong cardiac structure. - A Holter monitor study conducted over three days demonstrated some PVCs - There were no specified inciting events or exacerbating factors mentioned. Problem List - Palpitations Patient Instructions - Follow up with a pensions retirement plan specialist. An appointment will be scheduled, and the cardiology office will contact you. - Monitor and record any changes in symptoms, and report if there are any new concerns. - Continue with current management until seen by the scale manager. Review of Systems - General: No fever no chills - Neurological: No headaches no dizziness - Ear nose throat: No sore throat no hearing difficulty no ear pain - Cardiovascular: No syncope, no chest pain REPLACED BY [facility] Social History Housing: House Alcohol intake: current Alcohol intake frequency: a few times a month Patient Tobacco Use Status: Never used Tobacco e-Cigarette/Vaping Use: Never Used service: No Current occupational status: employed Cognitive needs: No Hearing needs: No Vision needs: No Questionnaire Thrive Questionnaire Date Thrive assessed: 11/05/24 AUDIT C Alcohol Use Questionnaire (AUDIT-C) 1. How often do you have a drink containing alcohol?: 2-3 times a week 2. How many drinks containing alcohol do you have on a typical day when you are drinking?: 1 or 2 3. How often do you have six or more drinks on one occasion?: Never Total Score: 3 Score Reviewed/Action Taken: Yes PATRICIA-7 AMB Questionnaire PATRICIA-7 Date PATRICIA - 7 assessed: 11/05/24 Source: Developed by Drs. Daljit Ahuja, Angelina Ybarra, Jose Man and colleagues, with an educational sunny from [employer]. Physical exam (Primary Care) Tobacco/Smoking Status: Tobacco use Status Tobacco use date assessed 12/19/24 12/19/24 08:50 Patient Tobacco Use Status Never used Tobacco 12/19/24 08:48 e-Cigarette/Vaping Use Never Used 12/19/24 08:48 Thrive Assessment: Date of Thrive Assessment Date Thrive assessed 11/05/24 12/19/24 08:48 Telehealth Telehealth Telehealth Platform: [employer] Location of provider rendering services: practice address Location of patient: address on file Patient Identification confirmed using: Name, : Yes Telehealth method: voice only Patient verbally consented to treatment: Yes Patient verbally consented to billing insurance company: Yes Patient informed of any privacy concerns related to visit: Yes Minutes spent on Phone/Video with Pt.: 12 Coding Level of Care Code Tele Est Pt Level 3 (54207) Diagnoses Palpitation R00.2 PVC (premature ventricular contraction) I49.3 Assessment & Plan Assessment & Plan (1) Palpitation: Code(s): R00.2 - Palpitations Category: Medical (2) PVC (premature ventricular contraction): Code(s): I49.3 - Ventricular premature depolarization Category: Medical Plan History - The patient is a 49-year-old female presenting with palpitations. - The patient reports that her palpitations have been stable recently. - Previous imaging studies of the heart were unremarkable, revealing a strong cardiac structure. - A Holter monitor study conducted over three days demonstrated some PVCs - There were no specified inciting events or exacerbating factors mentioned. Problem List - Palpitations Patient Instructions - Follow up with a pensions retirement plan specialist. An appointment will be scheduled, and the cardiology office will contact you. - Monitor and record any changes in symptoms, and report if there are any new concerns. - Continue with current management until seen by the scale manager. Orders: Referrals Cardiology Referral I49.3 - Ventricular premature depolarization, R00.2 - Palpitations
== END 2024-12-19 09:45 | disposition home or self-care (01) ==
LOC: HO.HMCC 08:17
PROVIDERS: PCP Internal Medicine; Visit Provider Internal Medicine
DX: R00.2 Palpitations (principal); I49.3 Ventricular premature depolarization

== ENCOUNTER → 2024-12-19 08:17 | Outpatient (BNVA) | payer BC, SELFPAY | PROVIDERS: PCP Internal Medicine; Visit Provider Internal Medicine ==

== ENCOUNTER 2025-04-28 08:54 | Outpatient (AMB) | payer BC, SELFPAY ==
[2025-04-28 08:59] VITALS: BP 116/72; PULSE 72; BMI 25.6
--- NOTE | 2025-04-28 08:59 | MHC.OFFVIS ---
Vital Signs 04/28/25 08:59 Height 5 ft 4 in Weight 149 lb 0.52 oz BMI 25.6 BP 116/72 Blood Pressure Location Lt brachial Pulse 72 Pulse Source Monitor Intake Visit Reasons: DIGITAL ACCOUNT SUPERVISOR/Karl/Palpiations/Ventricular premature dep Intake Note: DIGITAL ACCOUNT SUPERVISOR/ Karl/Palpitations/ Venticular Premature DEP . Recycling Crew Supervisor Required: No Accompanied by: Self / Same As Patient Allergies No Known Allergies Allergy (Verified 12/19/24 08:49) Medication List - Last Reconciled 04/28/25 by Julio Cesar Solares MD amitriptyline 25 mg PO BEDTIME 90 days propranolol 20 mg PO DAILY 90 days HPI Comments Details: Thank you for referring Roxanne in cardiology consultation today for symptoms of palpitations. She is a pleasant 49-year-old female with no significant past cardiovascular history or cardiovascular risk factors except for family history. Patient says for about a year or so she has been having symptoms of palpitation which are happening episodically. Can happen at nighttime with rapid heart rate. However these symptoms are infrequent. She had a Holter monitor in November which showed rare PACs and PVCs without any significant tachyarrhythmias. She also had an echocardiogram at that time which showed normal structure of the heart. Following that she has been referred here for further evaluation as her sister was recently diagnose with atrial fibrillation, she is 5 years younger to her. She also has family history of her father having a stroke in the mid 60s completely paralyzed and was subsequently diagnose atrial fibrillation. She is concerned about her own history and possibility of atrial fibrillation which is very reasonable. She says she exercises on a regular basis. She has no exertional chest pain or shortness of breath. No orthopnea, PND, leg edema. No recent changes in his health or any [id number] medications. She is currently on propranolol therapy. She denies any lightheadedness, syncope. No recent systemic symptoms PFSH Family History Sister No problems noted. Father Afib Social History Housing: House Alcohol intake: current Alcohol intake frequency: a few times a month Patient Tobacco Use Status: Never used Tobacco e-Cigarette/Vaping Use: Never Used service: No Current occupational status: employed Cognitive needs: No Hearing needs: No Vision needs: No Review of Systems Const Denies chills, Denies daytime sleepiness, Denies fatigue, Denies fever(s), Denies poor appetite, Denies snoring, Denies stops breathing during sleep, Denies weight gain and Denies weight loss Eyes Denies loss of vision Card Denies chest pain, Denies claudication, Denies leg edema, Denies lightheadedness, Reports palpitations, Denies dyspnea, Reports dyspnea on exertion and Denies orthopnea Resp Denies cough, Denies excessive phlegm production, Denies pain with cough, Denies dyspnea, Reports dyspnea on exertion, Denies snoring, Denies wheezing and Denies other GI Denies abdominal pain, Denies hematochezia, Denies change in bowel habits, Denies nausea and Denies vomiting Denies urinary frequency and Denies dysuria Musc Denies arthralgias and Denies muscle weakness Skin/Breast Denies nail changes and Denies rash Neuro Denies loss of vision and Denies memory loss Psych Denies depression, Reports difficulty concentrating, Denies auditory hallucinations and Denies memory loss Endo Denies fatigue and Reports palpitations Kelvin/Lymph Denies easy bruising Aller/Immun Denies wheezing Physical Exam Vital Signs: Last Vital Signs Pulse 72 04/28/25 08:59 BP 116/72 04/28/25 08:59 BMI result Body Mass Index 0.2 Const General: cooperative, comfortable, no acute distress, alert, awake, Physically active and well groomed Nutritional Appearance: average body habitus Orientation/consciousness: patient oriented x3 Limitations: no limitations HEENT Head: Yes normocephalic and Yes atraumatic Neck Neck: Yes trachea midline, Yes supple and Yes no JVD Resp Effort & Inspection: normal respiratory effort Auscultation: clear to auscultation bilaterally Cardio Jugular venous distension: no JVD Palpation: normal PMI Rate: regular rate Rhythm: regular rhythm Heart sounds: S1 normal heart sound present, S2 normal heart sound present, no click, no gallops, no murmurs and no rubs GI Auscultation: normal bowel sounds Skin General skin exam: no rashes or lesions noted Neuro General: patient oriented x3 and no focal motor deficits Extrem General: Yes no clubbing, cyanosis or edema Office Procedures EKG Details: EKGs shows normal sinus rhythm with normal EKG [id number]-[id number], Complete Assessment & Plan Assessment & Plan (1) PVC (premature ventricular contraction): Code(s): I49.3 - Ventricular premature depolarization Category: Medical Plan: Patient on Holter monitor as rare ectopy with PVCs and PACs which are not likely cause of her symptoms. Symptoms are most suggestive of tachyarrhythmias such as SVT or atrial fibrillation. Given her family history of atrial fibrillation, this is highly likely. However her episodes are very infrequent. Options include doing a cardiac event monitor for 30 days and/or smart phone based EKG sensor devices that can also help with diagnose as of her episodic palpitation tachyarrhythmias. She is preferring to pursue that. Given her family history as well as cardiac arrhythmias would suggest a ETT to rule out myocardial ischemia. Also given family history of coronary artery disease as mentioned in his chart, if the stress test is negative advised her to pursue coronary calcium score. She is interested in pursuing that which will be done as an outpatient. Possible outcomes and treatment options were discussed with her in details. Cardiac arrhythmias often triggered by stimulants and/or stress. Have advised to avoid stimulants as well as participate in his stress mitigation strategies. She understands and agrees. (2) Pre-operative cardiovascular examination: Code(s): Z01.810 - Encounter for preprocedural cardiovascular examination Plan: Preoperative cardiovascular risk stratification this middle-aged female who is in great shape and exercise on regular basis without any cardiac symptoms of angina or heart failure. She is currently optimized to undergo the procedure with low risk for perioperative cardiovascular morbidity mortality. Will follow up in the clinic if need be. Thank you for allowing me to partake in her care Orders: Orders CA stress test Today I49.3 - Ventricular premature depolarization CT Coronary Calcium Score 2 Weeks E78.5 - Hyperlipidemia, unspecified, Z82.49 - Family history of ischemic heart disease and other diseases of the circulatory system Coding Level of Care Code New Pt Level 4 (53545) Complex EM visit Add On G2211 Diagnoses PVC (premature ventricular contraction) I49.3 Pre-operative cardiovascular examination Z01.810 CPT Codes EKG - CPT: 38157-[id number], Complete ([id number])
--- OUTSIDE RECORDS SUMMARY | 2025-04-28 10:20 | XMS_ITS | Clinical Summary ---
Author Organization [address] Address [address] [place] [address] Phone Care Team Providers Care Asset Liability Analyst Name Role Phone Robert Barajas MD Primary Care Provider [phone] Surgical History Surgery Date Site/Laterality Comments OTHER SURGICAL HISTORY PROCEDURE: DENIES PREVIOUS SURGERY Family History Medical History Relation Name Comments Stroke Father Breast cancer Maternal Grandmother Breast cancer Paternal Grandmother Relation Name Status Comments Father Maternal Grandmother Paternal Grandmother Social History Tobacco Use Types Packs/Day Years Used Date Smoking Tobacco: Never Smokeless Tobacco: Never Comments No Sex and Gender Information Value Date Recorded Sex Assigned at Not on file Legal Sex Female 9:49 PM EST Gender Identity Not on file Sexual Orientation Not on file Obstetrics History Para Term AB IAB SAB Ectopic Multiple Livin g Live Births 2 Last Filed Vital Signs Vital Sign Reading Time Taken Comments Blood Pressure 131/82 08/23/2022 11:44 AM EST Pulse 61 08/23/2022 11:44 AM EST Temperature - - Respiratory Rate - - Oxygen Saturation - - Inhaled Oxygen Concentration - - Weight 67.1 kg (148 lb) 01/23/2025 8:30 AM EDT Height 162.6 cm (5' 4 ) 01/23/2025 8:30 AM EDT Body Mass Index 25.4 01/23/2025 8:30 AM EDT Plan of Treatment Health Maintenance Due Date Last Done Comments DTaP,Tdap,and Td Vaccines (1 - Tdap) 1993 Hepatitis B Vaccines (1 of 3 - 19+ 3-dose series) 1993 Colorectal Cancer Screening: Colonoscopy 07/09/2022 HIV Screening 07/09/2022 Hepatitis C Screening 07/09/2022 Social Influencers of Health Screening 07/09/2022 Depression Screening 08/07/2024 Pneumococcal Vaccine: 50+ Years (1 of 1 - PCV) 2024 Zoster Vaccines (1 of 2) 2024 COVID-19 Vaccine (3 - 2024- season) 2025 11/24/2020, 11/01/2020 Influenza Vaccine (#1) 2025 06/02/2021, 2016 Breast Cancer Screening 01/23/2027 01/24/20, 04/03/2022, 06/15/2020, Additional history exists Cervical Cancer Screening: HPV 12/16/2029 12/16/2024 HIB [...] 20 months Aged Out No longer eligible based on patient's age to complete this topic Varicella Vaccines Aged Out No longer eligible based on patient's age to complete this topic Procedures Procedure Name Priority Date/Time Associated Diagnosis Comments MG MAMMO DIGITAL SCREENING W ERASMO BILAT Routine 01/23/2025 8:36 AM EDT Encounter for screening mammogram for malignant neoplasm of breast HPV WITH REFLEX GENOTYPE Routine 12/16/2024 12:00 AM EDT Encounter for gynecological examination (general) (routine) without abnormal findings from Last 3 Months or Most Recently Relevant to Health Maintenance Results * MG Mammo Digital Screening w Erasmo bilat (01/23/2025 8:36 AM EDT) Anatomical Region Laterality Modality Breast Bilateral Mammography 01/23/2025 8:54 AM EDT Impressions 01/23/2025 8:57 AM EDT No mammographic evidence of malignancy. A negative mammogram in the presence of a clinically suspicious palpable abnormality does not preclude the possibility of malignancy or alter the indications for biopsy. PQRI CPT II 3341F Code 27736, 20056 PQRI 225 CPT II 7025F TISSUE DENSITY: The breasts are heterogeneously dense, which may obscure small masses. (BI-RADS category C) IMPRESSION: Benign. BI-RADS CATEGORY: 1 - NEGATIVE RECOMMENDATION: Screening bilateral mammogram is recommended in 1 year. Mammo Location: [facility], [address] [place] [address] -------- FINAL REPORT -------- Dictated By: Mukesh Tay Dictated Date: 01/23/2025 08:54 ET Assigned Physician: Mukesh Tay Reviewed and Electronically Signed By: Mukesh Tay Signed Date: 01/23/2025 08:57 ET Workstation ID: [id number] Transcribed By: Self Edit Transcribed Date: 01/23/2025 08:54 ET Narrative 01/23/2025 8:57 AM EDT CLINICAL: The patient is a 49 years Female presenting for routine screening mammography. COMPARISON: Most recently 04/02/2022 and most remotely 03/20/2017. TECHNIQUE: Full-field digital mammography of the breasts bilaterally consisting of tomosynthesis in MLO and CC projection is performed in the [employer] 2000-D unit. Computer aided detection utilizing the iCAD system was utilized. FINDINGS: The breasts are again seen to be composed of a combination of fatty and moderately dense fibroglandular elements. There is no cluster of microcalcifications, mass, or area of architectural distortion. There is no skin thickening or nipple retraction. Procedure Note Mukesh Tay MD - 01/23/2025 CLINICAL: The patient is a 49 years Female presenting for routinescreening mammography. COMPARISON: Most recently 04/02/2022 and most remotely 03/20/2017. TECHNIQUE: Full-field digital mammography of the breasts bilaterallyconsisting of tomosynthesis in MLO and CC projection is performed in the[employer] 2000-D unit. Computer aided detection utilizing the iCADsystem was utilized. FINDINGS: The breasts are again seen to be composed of a combination offatty and moderately dense fibroglandular elements. There is no clusterof microcalcifications, mass, or area of architectural distortion. Thereis no skin thickening or nipple retraction. IMPRESSION: No mammographic evidence of malignancy. A negative mammogram in the presence of a clinically suspicious palpableabnormality does not preclude the possibility of malignancy or alter theindications for biopsy. PQRI CPT II 3341F Code 09592, 48018 PQRI 225 CPT II 7025F TISSUE DENSITY: The breasts are heterogeneously dense, which may obscuresmall masses. (BI-RADS category C) IMPRESSION: Benign. BI-RADS CATEGORY: 1 - NEGATIVE RECOMMENDATION: Screening bilateral mammogram is recommended in 1 year. Mammo Location: [facility], [address] [place] [id number] -------- FINAL REPORT -------- Dictated By: Mukesh Tay Dictated Date: 01/23/2025 08:54 ET Assigned Physician: Mukesh Tay Reviewed and Electronically Signed By: Mukesh Tay Signed Date: 01/23/2025 08:57 ET Workstation ID: [id number] Transcribed By: Self Edit Transcribed Date: 01/23/2025 08:54 ET us Remigio Maher MD IMG BI PROCEDURES Final Result * HPV with reflex genotype (12/16/2024 12:00 AM EDT) HPV Negative Negative LAB MICROBIOLOGY METHOD 12/24/2024 3:05 PM EDT [facility] Brushing/Spatula Cervix uteri structure / Unknown 12/16/2024 12/17/2024 6:37 AM EDT us Remigio Maher MD LAB MOLECULAR DIAGNOSTICS DARYN RODRIGUEZ Edited Result - Final [facility] [address] [place] [address], [place] [phone] from Last 3 Months or Most Recently Relevant to Health Maintenance Insurance [facility] Advance Directives Documents on File Type Date Recorded Patient Carry In Worker Expl anation Health Care Decision (hx) 01/07/2022 AD HIGUERA DIRECTIVE Health Care Decision (hx) 01/07/2022 AD HIGUERA DIRECTIVE Health Care Decision (hx) 01/07/2022 AD HIGUERA DIRECTIVE Care Teams Asset Liability Analyst Relationship Specialty Start Date End Date Robert Barajas MD [address] [place] [id number] PCP - General Internal Medicine 12/23/21
--- OUTSIDE RECORDS SUMMARY | 2025-04-28 10:20 | XMS_ITS | Patient Health Record ---
Author Organization [facility] Address [address] [place] [address] Care Team Providers Care Nursing Support Worker Name Role Phone Karl SALEH, Asma Primary Care Provider Daljit Garg Unavailable [phone] Allergies No Known Allergies Reason For Referral Referring Provider First Name Ely Referring Provider Last Name Britni Referring Provider Speciality Internal M edicine Referred Organization [facility] Referred Provider Daljit Rollins Referred Address [address],[place], [place],[address], Referred Provider Specialty Gastroentero logy General Notes Safia Stevens 2024 02:40:34 PM >requested referral from Dr. Ryder' office for visit with Dr. Rollins on 03-18-2025 Referral Priority Routine Medications Medication SIG (Take, Route, Fr equency, Duration) Notes Start Date End Date Status Amitriptyline HCl Ac tive Propranolol HCl Acti ve Social History Tobacco Use: Social History Observation Description Date Details (start date - stop date) Never Smoker NA - NA Tobacco Control (Standard) Question Answer Notes Tobacco use: Nonsmoker AUDIT-C (Standard) Question Answer Notes Did you have a drink contain ing alcohol in the past year? Yes How often did you have a dri nk containing alcohol in the past year? Never (0 point) How many drinks did you have on a typical day when you were drinking in the past year? 1 or 2 drinks (0 point) How often did you have six o r more drinks on one occasion in the past year? Never (0 point) Points 0 Interpretation Negative Problems Problem Type SNOMED Code ICD Code Onset Dates Problem Status W/U Status Risk Notes Problem Colon cancer screening (738289179) Colon cancer screening (Z12.11) Active confirmed Problem Preprocedural examination (387677650828596) Preprocedural examination (Z01.818) Active confirmed Vital Signs Blood pressure diastolic 77 mm Hg 03/18/2025 Height 64 in 03/18/2025 Blood pressure systolic 111 mm Hg 03/18/2025 Weight 146 lbs 03/18/2025 BMI 25.06 kg/m2 03/18/2025 Procedures Procedure Date Ordered Date Performed Result Body Sit e COLONOSCOPY 03/18/2025 N/A Encounters Encounter Location Date Provider Diagnosis [facility] [address] [place] [address] 03/18/2025 Daljit Rollins Colon cancer screeni ng Z12.11 and Preprocedural examination Z01.818 Assessments Encounter Date Diagnosis (ICD Code) Assessment Notes Treatment Notes Treatment Clinical Notes Section Notes 03/18/2025 Colon cancer screening (ICD-10 - Z12.11) Overall, Dorita appears quite well. Given her age and excellent clinical appearance, I did recommend a colonoscopy for screening purposes. We did review the rationale for that in regard to colon cancer prevention. Full consent has been obtained for this, including risks of bleeding and perforation. The procedure will be done with monitored anesthesia care. Dorita was comfortable with this plan. Thank you again for allowing me to participate in Dorita's care. I shall continue to keep you advised of her progress. 03/18/2025 Preprocedural examination (ICD-10 - Z01.818) Overall, Dorita appears quite well. Given her age and excellent clinical appearance, I did recommend a colonoscopy for screening purposes. We did review the rationale for that in regard to colon cancer prevention. Full consent has been obtained for this, including risks of bleeding and perforation. The procedure will be done with monitored anesthesia care. Dorita was comfortable with this plan. Thank you again for allowing me to participate in Dorita's care. I shall continue to keep you advised of her progress. Plan Of Treatment Pending Test Test Name Order Date COLONOSCOPY 03/18/2025 Next Appt Details Provider Name:Daljit Rollins , 06/20/2025 09:30:00 AM, [address] [facility] , [place], [place], [id number], Insurance Providers Payer Name Payer Address Payer Phone Subscriber Number Group Number Insured Name Patient Relationship to Insured Coverage Start Date Coverage End Date [facility] [employer] CLAIMS [address] [place] [address] [id number] DORITA INGRAM Self - patient is the insured Medical (General) History Medical History History ICD Code Denies GA,DM,CVA,Lung disease,renal dise ase Migraines Irregular heartbeat - had a 3 day monitor and a Cardiac Echo- -seeing [facility] in 04/2025
--- OUTSIDE RECORDS SUMMARY | 2025-04-28 10:20 | XMS_ITS | Encounter Summary ---
Author Organization [facility] Address [address] [place] [address] Care Team Providers Care Sealer Sander Name Role Phone Robert Barajas MD Primary Care Provider [phone] Encounter Details Date Type Department Care Team (Latest Contact Info) Description 12/17/2024 Lab Requisition [facility] - Main Lab [address] [place] [address] Remigio Maher MD [address] [address] Encounter for gynecological examination (general) [...] on file documented as of this encounter Procedures Procedure Name Priority Date/Time Associated Diagnosis Comments HPV WITH REFLEX GENOTYPE Routine 12/16/2024 12:00 AM EDT Encounter for gynecological examination (general) (routine) without abnormal findings PAP SMEAR Routine 12/16/2024 12:00 AM EDT Encounter for gynecological examination (general) (routine) without abnormal findings documented in this encounter Results * HPV with reflex genotype (12/16/2024 12:00 AM EDT) HPV Negative Negative LAB MICROBIOLOGY METHOD 12/24/2024 3:05 PM EDT [facility] Brushing/Spatula Cervix uteri structure / Unknown 12/16/2024 12/17/2024 6:37 AM EDT Remigio Maher MD LAB MOLECULAR DIAGNOSTICS DARYN RODRIGUEZ Edited Result - Final [facility] [address] [place] [address], * Pap smear (12/16/2024 12:00 AM EDT) Interpretation Negative for intraepithelial lesion or malignancy 12/23/2024 4:18 PM EDT [facility] Clinical Information HSIL ON CX BX 202112/23/2024 4:18 PM EDT [facility] General Categorization Negative 12/23/2024 4:18 PM EDT [facility] Other Findings Fungal organisms morphologically consistent with Bettye spp Shift in lata suggestive of bacterial vaginosis 12/23/2024 4:18 PM EDT [facility] LMP 11/25/2024 12/23/2024 4:18 PM EDT [facility] Specimen Adequacy Satisfactory for evaluation, endocervical/gillespie sformation zone component absent 12/23/2024 4:18 PM EDT [facility] Pap Methodology Liquid Based Pap Test 12/23/2024 4:18 PM EDT [facility] Disclaimer The Pap test is a screening test which carries an inherent false negative rate. These test results should be correlated with the patient's clinical findings and history. This Pap test was processed using an automated screening system. Technical cytopathology services provided by [facility], at [address] [place] [address] (CLIA # [id number]/Jimi Glynn MD, Negative Stripper.) 12/23/2024 4:18 PM EDT [facility] Console Pap Interpretation Reported 12/23/2024 4:18 PM EDT [facility] Brushing/Spatula Cervix uteri structure / Unknown 12/16/2024 12/17/2024 6:37 AM EDT us Remigio Maher MD LAB CYTOLOGY ORDERABLES Final Result [facility] [address] [place] [address], documented in this encounter Visit Diagnoses Diagnosis Encounter for gynecological examination (general) (routine) without abnormal findings documented in this encounter Care Teams Sealer Sander Relationship Specialty Start Date End Date Robert Barajas MD [address] [place] [address] PCP - General Internal Medicine 12/23/21 documented as of this encounter
== END 2025-04-28 09:30 | disposition home or self-care (01) ==
PROVIDERS: PCP Internal Medicine; Visit Provider Internal Medicine Cardiovascular Disease
DX: I49.3 Ventricular premature depolarization (principal); Z01.810 Encounter for preprocedural cardiovascular examination
CPT/HCPCS: 93010; 99204